=== PATIENT | male | born 1940 | race Caucasian/White ===

== ENCOUNTER → 2016-10-02 | Outpatient (CLI) | payer OTHER, BC ==
[~2016-10-02] MED LIST: ACCUPRIL; ACCUPRIL PO; ADULT LOW DOSE81 MG PO; AMBEREN PO; AMBIEN 5 MG TABL5 M1 PO; AMBIEN CR 6.26.25 M1 PO; AMBIEN CR12.5 MG PO; AMBIENCR; AMBIENCR PO; AMOXICILLIN125 MG; ASPIR 8181 MG PO; ASPIRIN EC325 MG PO; ASPIRIN EC81 M1 PO; ATIVAN0.5 MG PO; ATIVAN1 MG PO; ATORVASTATIN CA20 MG PO; ATORVASTATIN CA40 MG PO; CALCIUM 500 +1 EAC5 PO; CALCIUM 600 +1 EAC2 PO; CALCIUM 600 +1 EAC5 PO; CALCIUM PO; CEFTIN 250250 MG/52 PO; CENTRUM SILVER1 EAC4 PO; CEPACOL SORE T1 EAC1 MM; DOXYCYCLINE 10100 MG PO; ECOTRIN325 MG PO; EFFIENT10 MG PO; FENOFIBRATE134 MG PO; FISH OIL + VIT1 EACH PO; FOLIC ACID 40400 MC1 PO; FOLIC ACID 40400 MCG PO; FOLIC ACID PO; FOLIC ACID1 MG PO; GLIPIZIDE ER2.5 MG PO; GLUCOTROL XL5 MG PO; GLUCOTROL5 MG PO; IBUPROFEN 600600 M1 PO; JANUVIA100 MG PO; JUNIVA; METFORMIN; METHOTREXATE 22.5 MG PO; MULTI-VITAMIN1 EAC5 PO; MULTIVITAMINS; NEXIUM 40 MG CA40 M1 PO; NEXIUM40 MG PO; NORCO 5-325 TA1 EACH PO; PEPCID40 MG PO; PIOGLITAZONE15 MG; PREDNISONE; PREDNISONE 1 MG1 M1 PO; PREDNISONE 5 MG5 M1 PO; PREDNISONE PO; PREVACID 24HR15 MG PO; QUINU10 PD PO; QUINU5 PD PO; TOPROL XL25 MG PO; TREXALL10 MG PO; TREXALL5 MG PO; TRICOR; TRICOR PO; TRICOR145 MG PO; UNICOMPLEX M TA1 TA1 PO; VITAMIN C + RO500 MG PO; VITAMIN D1000 UNI1 PO; VITAMINC500 PO; VYTORIN; VYTORIN 10-401 EACH PO; VYTORIN PO; ZOFRAN ODT4 MG PO
== END ==
LOC: RAD 10:32
DX: J90 Pleural effusion, not elsewhere classified (principal); J98.11 Atelectasis

== ENCOUNTER 2017-02-20 09:33 | Emergency (ER) | payer OTHER, BC ==
[~2017-02-20] VITALS: Ht 170.2 cm; Wt 68.0 kg
[2017-02-20] MEDS ORDERED: SENNA8.6 MG PO (11:18)
[2017-02-20] MEDS ORDERED: NORCO 5-325 TA1 EACH PO (11:25)
[2017-02-20 11:33] VITALS: BP 124/73
== END 2017-02-20 11:35 | disposition home or self-care (01) ==
LOC: ER 09:33
DX: M84.48XA Pathological fracture, other site, initial encounter for fracture (principal); E11.9 Type 2 diabetes mellitus without complications; M19.90 Unspecified osteoarthritis, unspecified site; Z95.9 Presence of cardiac and vascular implant and graft, unspecified; Z88.1 Allergy status to other antibiotic agents; Z88.2 Allergy status to sulfonamides; Z88.8 Allergy status to other drugs, medicaments and biological substances

== ENCOUNTER → 2017-03-07 | Outpatient (CLI) | payer OTHER, BC ==
[~2017-03-07] MED LIST changes: +SENNA8.6 MG PO
== END ==
LOC: MRI 11:47
DX: S22.000A Wedge compression fracture of unspecified thoracic vertebra, initial encounter for closed fracture (principal); X58.XXXA Exposure to other specified factors, initial encounter; Y93.89 Activity, other specified; Y92.89 Other specified places as the place of occurrence of the external cause; Y99.8 Other external cause status

== ENCOUNTER → 2017-04-22 | Outpatient (CLI) | payer OTHER, BC | LOC: CAT 09:53 | DX: J92.0 Pleural plaque with presence of asbestos (principal); J98.11 Atelectasis; Z77.090 Contact with and (suspected) exposure to asbestos ==

== ENCOUNTER → 2017-11-11 | Outpatient (CLI) | payer OTHER, BC | LOC: RAD 12:19 | DX: J44.9 Chronic obstructive pulmonary disease, unspecified (principal) ==

== ENCOUNTER → 2018-01-30 | Outpatient (CLI) | payer OTHER, BC ==
[~2018-01-30] VITALS: Ht 170.2 cm; Wt 69.0 kg
[~2018-01-30] MED LIST changes: +CENTRUM SILVER1 EAC2 PO; +ERGOCALCIF50000 UNIT PO; +GLIPIZIDE ER5 MG PO; +LOSARTAN POTAS100 MG PO; +NITROGLYCERIN0.4 MG SUBLING; +ZOLPIDEM TART12.5 M1 PO
--- NOTE | ~2018-01-30 | PATH ---
[facility] [address] [place] [address] PATHOLOGY RPT PROCEDURE Name: KIERRA CORONEL Barbara Room #: REG [facility].#: [id number] Admission: 01/30/18 Date of : 44 Discharge: Report #: [id number] Path Case #: [id number] [facility] Accession Number: [id number] . 01 Material submitted: . PART A: SMALL BOWEL BX PART B: GASTRITIS PART C: PROXIMAL ASCENDING COLON POLYP BX X2 PART D: HEPATIC FLEXURE POLYP PART E: COLON POLYP BX 70 CM X2 . 01 Clinical history: . Pre-op diagnosis: Dysphagia, iron deficiency anemia, history of colon polyps, family history of colon cancer Post-op diagnosis: Dysphagia, gastritis, esophageal varices, colon polyps, diverticulosis . 02 Diagnosis: A. Small bowel mucosa, small bowel rule out celiac, endoscopic biopsy: - No diagnostic abnormalities. - Negative for villous blunting or increase in intraepithelial lymphocytes. . B. Gastric mucosa, gastric, rule out H. pylori, endoscopic biopsy: - Mild reactive gastropathy. - Negative for intestinal metaplasia or atrophy. - Negative for Helicobacter pylori (properly-controlled immunohistochemical stain performed). . C. Polyp x2, proximal ascending colon, endoscopic biopsy: - One fragments showing a tubular adenoma without high grade dysplasia. - Remainder fragments showing hyperplastic polyps without dysplasia. . D. Polyp, hepatic flexure polyp, endoscopic biopsy: - Tubular adenoma. - Negative for high grade dysplasia. . E. Polyp x2, colon polyp at 70 cm, endoscopic biopsy: - Tubular adenoma admixed with hyperplastic changes. - Negative for high grade dysplasia. . (IUV:mml; 02/03/18) [facility]/02/03/2018 . 02 Electronically signed: . Audra Woody MD, Pathologist NPI- [id number] [address] [address] PATHOLOGY RPT PROCEDURE Name: KIERRA CORONEL Room #: REG CLI Scot#: [id number] Admission: 01/30/18 Date of : 44 Discharge: Report #: [id number] Path Case #: [id number] . 01 Gross description: . A. The specimen is received in formalin, labeled "Kierra Coronel small bowel biopsy, R/O celiac". Received are five segments of pale cartagena soft tissue ranging in size from 0.2 to 0.5 cm in maximum dimensions. The specimen is submitted entirely in cassette A1. . B. The specimen is received in formalin, labeled "Kierra Souesperanza, gastritis, R/O H. pylori". Received are three segments of pale cartagena soft tissue ranging in size from 0.2 to 0.6 cm in maximum dimensions. The specimen is submitted entirely in cassette B1. . C. The specimen is received in formalin, labeled "Kierra Sousley, proximal ascending colon polyp biopsy x2". Received are three segments of pale cartagena soft tissue ranging in size from 0.2 to 0.7 cm in maximum dimensions. The specimen is submitted entirely in cassette C1. . D. The specimen is received in formalin, labeled "Kierra Sousley, hepatic flexure polyp". Received is a segment of pale cartagena soft tissue measuring 0.6 cm in maximum dimensions. The specimen is submitted entirely in cassette D1. . E. The specimen is received in formalin, labeled "Kierra Souesperanza, colon polyp 70 cm biopsy x2". Received are two segments of pale cartagena soft tissue measuring 0.2 and 0.4 cm in maximum dimensions. The specimen is submitted entirely in cassette E1. (CAA; 01/31/2018) QAC/QAC . 02 Pathologist provided ICD-10: K31.9, D12.2, D12.3, D12.6, K63.5 . 02 CPT . 806044, 233566, 238519, 267828, 755119, G11390 Performed at: [address], [place], [place] [id number] MD Pedro Cerrato MD Phone: [phone] Performed at: [address] [id number] MD Audra Woody MD Phone: [phone]
--- NOTE | ~2018-01-30 | P ---
[facility] [place] [address] PROCEDURE REPORT Name: KIERRA CORONEL Room #: REG [facility]#: [id number] Admission: 01/30/18 Attend Phys: Nick Romero MD Discharge: Date of : 42 Report #: [id number] THIS REPORT FOR: //name// CC: Nick Tavera MD DATE OF SERVICE: 01/30/2018 BRIEF HISTORY: The patient is a 77-year-old male with recent findings of iron deficiency anemia. His father had colon cancer when he was in his late 60s. The patient has a history of colon polyps. PREOPERATIVE DIAGNOSIS: Iron deficiency anemia and family history of colon cancer and history of colon polyps. POSTOPERATIVE DIAGNOSES: 1. Multiple colon polyps. 2. Moderate sigmoid diverticulosis coli. MEDICATIONS: Deep sedation with propofol per anesthesia. SPECIMENS: 1. Proximal ascending colon polyps x 2. 2. A 6 mm sessile hepatic flexure polyp. 3. Polyps x 2 at 70 cm. ESTIMATED BLOOD LOSS: 3 mL. PROCEDURE: Colonoscopy to cecum and terminal ileum with snare polypectomy and biopsy. FINDINGS: Prior to propofol sedation, procedure of colonoscopy discussed with the patient as well as potential risks and its complications. He indicates he understands and desires to proceed. The patient was placed in left lateral decubitus position, digital examination was completed which revealed no abnormalities. Subsequently, the DB3 Mobile video colonoscope was introduced in the rectum, advanced under direct vision to the cecum. Done with minimal difficulty. The cecum was identified by the ileocecal valve and the appendiceal orifice. I was able to visualize the distal segment of the terminal ileum, which was inspected and noted to be unremarkable. At that point, the scope was slowly withdrawn and careful circumferential views obtained including retroflexing the scope in the ascending colon. Upon slow withdrawal of the scope, the prep was good. The mucosa was within normal limits, normal vascular pattern, normal light reflex. As we withdrew the scope, [facility] [address] [place] [address] PROCEDURE REPORT Name: KIERRA CORONEL Room #: REG [facility] KaroAmanda#: [id number] Admission: 01/30/18 Attend Phys: Nick Romero MD Discharge: Date of : 42 Report #: [id number] 2 diminutive polyps were seen, removed by biopsy in the proximal ascending colon. Scope was further withdrawn and at the hepatic flexure, a 6 mm sessile polyp was seen and removed by cold snare polypectomy and recovered. Scope was further withdrawn and no additional abnormalities were noted until the descending colon at 70 cm, 2 more diminutive polyps were seen and removed by biopsy. Scope was further withdrawn and he was noted to have moderately severe diverticular disease in the sigmoid colon, endoscopic evidence of diverticulitis. Scope was withdrawn in the rectum. Upon retroflexion, no abnormalities were seen. Scope was withdrawn. The patient tolerated the procedure well. CONDITION OF THE PATIENT UPON DISCHARGE: Following the procedure, the patient was drowsy and arousable, will be discharged home when fully ambulatory. INSTRUCTIONS TO THE PATIENT AND FAMILY AT THE TIME OF DISCHARGE: The patient with 5 polyps as noted above. We will follow up on the path. If 3 or more polyps are adenomas, he is to return in 3 years, otherwise he is to return in 5 years for followup colonoscopy due to the polyps and family history. Withdrawal time from the cecum was 18 minutes 59 seconds. Last previous colonoscopy was about 4 years ago. <ELECTRONICALLY SIGNED> By: Nick Romero MD 01/31/18 1645 1132 1203 Nick Romero MD /nt
--- NOTE | ~2018-01-30 | P ---
[facility] [place] [address] PROCEDURE REPORT Name: KIERRA CORONEL Room #: REG [facility]#: [id number] Admission: 01/30/18 Attend Phys: Nick Romero MD Discharge: Date of : 42 Report #: [id number] THIS REPORT FOR: //name// CC: Nick Tavera MD BRIEF HISTORY: The patient is a 77-year-old male with recent findings of iron deficiency anemia. He also has intermittent solid food dysphagia in particular for rice boluses. PREOPERATIVE DIAGNOSIS: Dysphagia. POSTOPERATIVE DIAGNOSES: 1. Grade 1 esophageal varices, nonbleeding. 2. Diffuse gastritis. MEDICATIONS: Deep sedation with propofol per anesthesia. SPECIMENS: 1. Small-bowel biopsies to rule out celiac disease. 2. Biopsies of gastritis. ESTIMATED BLOOD LOSS: 3 mL. PROCEDURE: EGD with biopsy and Caruso dilation. FINDINGS: Prior to propofol sedation, the procedure of upper endoscopy was discussed with the patient as well as potential risks, benefits and complications. He indicates he understands and desires to proceed. With the patient in left lateral decubitus position, the Olympus video endoscope was inserted in the cervical esophagus under direct vision without difficulty. Examination of this organ through its entire tie length revealed normal esophageal mucosa in the proximal esophagus. However, in the mid and distal esophagus, 3 columns of grade I esophageal varices were identified. There were no stigmata of bleeding. The varices extended to just above the squamocolumnar junction. The patient has had dysphagia, no strictures or masses were seen. The scope was advanced in the stomach, was examined on end view as well as retroflexed views. There was diffuse erythematous antral gastritis. There were no ulcers or erosions and no evidence of bleeding. Multiple biopsies were obtained of the antrum and also the body of the stomach. Examination of the remainder of the stomach revealed normal mucosa. Upon retroflexion, gastric varices were not seen. Pylorus, duodenal bulb, and postbulbar sweep were all inspected and noted to be within normal limits. Due to his history of anemia, small-bowel biopsies were obtained. At that point, the scope was slowly withdrawn and careful circumferential views confirmed the above findings. The [address] [address] PROCEDURE REPORT Name: KIERRA CORONEL Barbara Room #: REG [facility].#: [id number] Admission: 01/30/18 Attend Phys: Nick Romero MD Discharge: Date of : 44 Report #: [id number] patient tolerated the procedure well. Subsequently, he was dilated with passage of 50-Georgian Caruso dilator. He does have grade 1 varices, but the varices are small and varices were not seen right at the GE junction. After dilation, the scope was reinserted and no mucosal trauma was encountered and there was no evidence of bleeding. Scope was withdrawn. The patient tolerated the procedure well. CONDITION OF THE PATIENT UPON DISCHARGE: Following procedure, the patient drowsy, arousable and conversant. He was then prepared for colonoscopy due to his anemia. INSTRUCTIONS TO THE PATIENT AND FAMILY AT THE TIME OF DISCHARGE: The patient with findings of esophageal varices. To the best of my knowledge, this is a new finding. We will discuss further with the patient. He reports that he does not drink alcohol, we will review with him once again. He may need to follow up in the office for further evaluation of his varices. We will proceed with colonoscopy at this time. <ELECTRONICALLY SIGNED> By: Nick Romero MD 01/31/18 1645 1056 1201 Nick Romero MD /nt
== END | disposition home or self-care (01) ==
LOC: GI 12-05 08:41
DX: D12.2 Benign neoplasm of ascending colon (principal); D12.4 Benign neoplasm of descending colon; D12.3 Benign neoplasm of transverse colon; K63.5 Polyp of colon; K57.30 Diverticulosis of large intestine without perforation or abscess without bleeding; K31.9 Disease of stomach and duodenum, unspecified; K29.70 Gastritis, unspecified, without bleeding; R13.19 Other dysphagia; I85.00 Esophageal varices without bleeding; I10 Essential (primary) hypertension; E11.9 Type 2 diabetes mellitus without complications; I25.2 Old myocardial infarction; M19.90 Unspecified osteoarthritis, unspecified site; K21.9 Gastro-esophageal reflux disease without esophagitis; F41.9 Anxiety disorder, unspecified; Z95.5 Presence of coronary angioplasty implant and graft; Z85.828 Personal history of other malignant neoplasm of skin; Z79.899 Other long term (current) drug therapy; Z95.1 Presence of aortocoronary bypass graft; Z80.0 Family history of malignant neoplasm of digestive organs; Z90.49 Acquired absence of other specified parts of digestive tract; Z87.891 Personal history of nicotine dependence; Z86.010 Personal history of colon polyps
CPT/HCPCS: 62110; 62900

== ENCOUNTER → 2018-03-11 | Outpatient (CLI) | payer OTHER, BC | LOC: ULTRA 07:55 | DX: K76.0 Fatty (change of) liver, not elsewhere classified (principal); I77.811 Abdominal aortic ectasia; R16.1 Splenomegaly, not elsewhere classified; E11.9 Type 2 diabetes mellitus without complications; M19.90 Unspecified osteoarthritis, unspecified site ==

== ENCOUNTER 2018-08-13 05:31 | Day surgery (SDC) | payer OTHER, BC ==
[~2018-08-13] VITALS: Ht 170.2 cm; Wt 64.0 kg
--- NOTE | ~2018-08-13 | O ---
[facility] [place] [address] OPERATIVE REPORT Name: KIERRA CORONEL Room #: 150-5 [facility]..#: [id number] Admission: 08/13/18 Attend Phys: Valentino Zaldivar MD Discharge: Date of : 44 Report #: [id number] THIS REPORT FOR: //name// CC: DR KYUNG Zaldivar PREOPERATIVE DIAGNOSIS: Left inguinal hernia. POSTOPERATIVE DIAGNOSIS: Left indirect inguinal hernia. PROCEDURES PERFORMED: Laparoscopic properitoneal repair of a left indirect inguinal hernia with a large 3DMax lightweight mesh. SURGEON: Valentino Zaldivar M.D. ANESTHESIA: General anesthesia. COMPLICATIONS: None. ESTIMATED BLOOD LOSS: 10 mL. PROCEDURE NOTE: With the patient under general anesthesia, Garg catheter was placed, IV vancomycin 1 gram was given. Timeout was performed. Abdomen was prepped and draped in sterile fashion. A small 2 cm incision was made adjacent to the umbilicus on the left side. Anterior rectus fascia was transversely incised. The muscle was spread along the length of its fiber. The posterior sheath was identified. The space between the muscle and the posterior sheath was bluntly dissected. An 11 mm Origin balloon trocar was then placed in the space. CO2 was placed. The pressure was set at 12. Under visualization, a 5 mm trocar was placed about couple of inches below the umbilicus. Dissection was carried out bluntly and with cautery. Properitoneal space was opened up. The patient did have a couple of areas that were oozing, one in the lateral wall on the left and the L1 was underneath the pubic bone. A second 5 mm trocar was placed about 2 inches below the initial 5 mm trocar. The dissection was carried to the area of the spermatic cord, which is guided by the inferior epigastric artery. The patient had a prominent indirect sac. When the sac was tied on, the cord was initially inseparable from the sac. An opening was made in the hernia sac. This was closed with placing three 5 mm clips on it. The hernia sac was then reduced out of the internal ring out of the canal. This was then freed from the underlying cord structure. The mass was found and the vessels were found. The hernia sac was reduced without difficulty. There is some oozing from the vessel described above. The blood was evacuated as much as possible. A large 3DMax lightweight mesh was then placed in the properitoneal space. This was opened up. This covered the lateral wall and the internal ring. This covered the pubic bone and went down below the pubic bone and then up to the rectus muscle. The mesh was then tacked to the wall using SorbaFix. [address] [address] OPERATIVE REPORT Name: KIERRA CORONEL Room #: 150-5 [facility] M.R.#: [id number] Admission: 08/13/18 Attend Phys: Valentino Zaldivar MD Discharge: Date of : 42 Report #: [id number] The hernia sac was found and then brought medial to the mesh. The CO2 was evacuated. The patient did have quite a bit of air intraabdominally. The two 5 mm trocars were then removed. At the small incision site, the posterior sheath was opened at the umbilicus side. The posterior sheath was opened and then the peritoneum was also opened. CO2 was evacuated. I did place a 5 mm trocar into the abdominal cavity through this opening and then evacuated the CO2 as much as possible. Trocars then removed. The posterior fascia defect was closed with [id number] 0 Vicryl. Anterior fascia defect at the small cutdown site was closed with 0 Vicryl [id number] x 2. Skin was irrigated. Skin was closed with 5-0 PDS at all trocar sites. Steri-Strip, Band-Aids applied. The patient was awakened and taken to recovery room. By: 1159 1248 Valentino Zaldivar MD /nt
[~2018-08-13 05:31] MED LIST changes: +TYLENOL EXTRA500 MG PO; +XARELTO20 MG PO
[2018-08-13 08:42] LABS: HEMATOCRIT 38.5 % (42.0-52.0); HEMOGLOBIN 12.3 gm/dL (14.0-18.0)
[2018-08-13 08:44] VITALS: BP 128/57
[2018-08-13 08:54] LABS: APTT 27.5 Seconds (24.5-32.8); INR 1.1; PROTIME 11.6 Seconds (9.3-11.4)
[2018-08-13] MEDS ORDERED: NORCO 5-325 TA1 EACH PO (11:39)
[2018-08-13 11:57] VITALS: BP 128/57
== END 2018-08-13 12:40 | disposition home or self-care (01) ==
LOC: OR 05:31 → TBA 05:31 → OR 12:40
PROVIDERS: Surgery
DX: K40.90 Unilateral inguinal hernia, without obstruction or gangrene, not specified as recurrent (principal); I20.0 Unstable angina; K21.9 Gastro-esophageal reflux disease without esophagitis; F41.9 Anxiety disorder, unspecified; E11.9 Type 2 diabetes mellitus without complications; M19.90 Unspecified osteoarthritis, unspecified site; I25.2 Old myocardial infarction; E78.5 Hyperlipidemia, unspecified; I48.91 Unspecified atrial fibrillation; Z87.891 Personal history of nicotine dependence; Z90.49 Acquired absence of other specified parts of digestive tract; Z88.1 Allergy status to other antibiotic agents; Z88.2 Allergy status to sulfonamides; Z88.8 Allergy status to other drugs, medicaments and biological substances; Z79.82 Long term (current) use of aspirin; Z79.899 Other long term (current) drug therapy; Z95.5 Presence of coronary angioplasty implant and graft; Z85.828 Personal history of other malignant neoplasm of skin; Z98.890 Other specified postprocedural states
CPT/HCPCS: 50010; 50101; 50411; 50455; 50507; 50555; 50848; 53065; 53307; 55245; 56525; 56526; 62110; 62900; 70005

== ENCOUNTER 2018-09-08 09:46 | Emergency (ER) | payer OTHER, BC ==
[~2018-09-08] VITALS: Ht 170.2 cm; Wt 63.5 kg
[2018-09-08 10:34] LABS: ABSOLUTE NEUTROPHILS 8.7 thou/uL (1.4-8.2); BASOPHILS 1.4 % (0.0-2.0); EOSINOPHILS 2.2 % (0.0-3.0); HEMATOCRIT 39.9 % (42.0-52.0); HEMOGLOBIN 12.6 gm/dL (14.0-18.0); LYMPHOCYTES 4.1 % (24.0-44.0); MCHC 31.7 g/dL (28.0-37.0); MCV 72.5 fL (80.0-100.0); MONOCYTES 4.4 % (1.0-8.0); PLATELET COUNT 154 thou/uL (150-400); POLYS 87.9 % (36.0-66.0); RDW 20.9 % (10.5-14.5); WBC 9.9 thou/uL (4.0-11.0)
[2018-09-08 10:42] LABS: CALCIUM 8.7 mg/dL (8.5-10.1); CREATININE 0.9 mg/dL (0.7-1.3)
[2018-09-08] MEDS ORDERED: LASIX 20 MG TAB20 MG PO (12:46)
[2018-09-08] MEDS ORDERED: POTASSIUM20 PO (12:46)
[2018-09-08] MEDS ORDERED: DOXYCYCLINE 10100 MG PO (13:50)
[2018-09-08] MEDS ORDERED: ELIQUIS5 MG PO (13:51)
[2018-09-08 13:53] VITALS: BP 112/58
== END 2018-09-08 13:53 | disposition home or self-care (01) ==
LOC: ER 09:46
PROVIDERS: Student in an Organized Health Care Education/Training Program
DX: M79.89 Other specified soft tissue disorders (principal); E11.9 Type 2 diabetes mellitus without complications; M19.90 Unspecified osteoarthritis, unspecified site; K21.9 Gastro-esophageal reflux disease without esophagitis; I10 Essential (primary) hypertension; Z85.828 Personal history of other malignant neoplasm of skin; E78.5 Hyperlipidemia, unspecified; F41.9 Anxiety disorder, unspecified; I48.91 Unspecified atrial fibrillation; Z77.22 Contact with and (suspected) exposure to environmental tobacco smoke (acute) (chronic); Z88.1 Allergy status to other antibiotic agents; Z88.8 Allergy status to other drugs, medicaments and biological substances; Z88.2 Allergy status to sulfonamides; Z90.49 Acquired absence of other specified parts of digestive tract; Z95.5 Presence of coronary angioplasty implant and graft

== ENCOUNTER 2018-09-19 12:33 | Inpatient (IN) | payer OTHER, BC ==
[2018-09-19] VITALS (7 sets, daily range): BP systolic 100–157; BP diastolic 57–74
[~2018-09-19] VITALS: Ht 170.2 cm; Wt 75.2 kg
[~2018-09-19 12:33] MED LIST changes: +ELIQUIS5 MG PO; +LASIX 20 MG TAB20 MG PO; +POTASSIUM20 PO
[2018-09-19 13:03] LABS: ABSOLUTE NEUTROPHILS 11.8 thou/uL (1.4-8.2); BASOPHILS 0.9 % (0.0-2.0); EOSINOPHILS 0.8 % (0.0-3.0); HEMATOCRIT 37.9 % (42.0-52.0); LYMPHOCYTES 2.7 % (24.0-44.0); MCH 22.4 pg (26.0-34.0); MCHC 31.7 g/dL (28.0-37.0); MCV 70.7 fL (80.0-100.0); MONOCYTES 5.1 % (1.0-8.0); PLATELET COUNT 261 thou/uL (150-400); POLYS 90.5 % (36.0-66.0); RBC 5.37 mil/uL (4.50-6.00); RDW 19.9 % (10.5-14.5); WBC 13.1 thou/uL (4.0-11.0)
[2018-09-19 13:10] LABS: CALCIUM 8.4 mg/dL (8.5-10.1); CREATININE 0.9 mg/dL (0.7-1.3)
[2018-09-19 13:26] LABS: URINE BILIRUBIN NEGATIVE (Negative); URINE BLOOD NEGATIVE (Negative); URINE CLARITY CLEAR; URINE COLOR YELLOW; URINE GLUCOSE-RANDOM* NEGATIVE (Negative); URINE KETONES NEGATIVE (Negative); URINE LEUKOCYTES-REFLEX NEGATIVE (Negative); URINE NITRITE-REFLEX NEGATIVE (Negative); URINE PROTEIN (DIPSTICK) TRACE (Negative); URINE SPECIFIC GRAVITY 1.025 (1.005-1.035); URINE UROBILINOGEN 0.2 E.U./dl (0.2-1.0)
[2018-09-19] MEDS ORDERED: POTASSIUM20 PO (13:42)
[2018-09-19] MEDS ORDERED: LASIX 40 MG TAB40 M2 PO (13:43)
[2018-09-19 13:48] LABS: ANISOCYTOSIS 2+; HYPOCHROMASIA 1+; MICROCYTES 1+; OVALOCYTES OCCASIONAL
--- NOTE | 2018-09-19 16:53 | NUR ---
VASCULAR ACCESS CONSULTED FOR PICC LINE, LABS,MEDS,HISTORY,ORDER AND CONSENT VERIFIED. DISCUSSED BENEFITS AND RISKS WITH PT, VERBALIZED UNDERSTANDING. SUE GAINES WAS WIDELY PATENT WITH USG, 1% LIDOCAINE GIVEN SQ. 5FR TL POWER PICC TRIMMED TO 45CM INSERTED TO 3CM EXTERNAL. PICC SECURED STAT CXR OBTAINED VERIFIED AT [facility]. PICC RELEASED FOR IMMEDIATE USE PER PROTOCOL TO THIEN ROGER
--- NOTE | 2018-09-19 21:30 | NUR ---
77 Y/O PT OF DR SHEETS ADMITTED TO ICU FROM ER WITH SEPSIS HYPOTENSION PT IS AWAKE AND ALERT. MONITOR SHOWS AFIB RATE 80 TEMP 98.8 TITRATING DOWN LEVOPHED GTT FROM 12 MCG. WILL CONT TO MONITOR
--- NOTE | 2018-09-19 21:30 | NUR ---
77 Y/O PT ADMITTED TO ICU . AWAKE AND ALERT NEURO INTACT. SINUS RHYTHM TITRATING DOWN LEVOPHED GTT. SON AT BEDSIDE. WILL CONT TO MONITOR
--- NOTE | 2018-09-19 23:00 | NUR ---
LEVO GTT TITRATED OFF. SBP 130/70.
[2018-09-20] VITALS (24 sets, daily range): BP systolic 98–138; BP diastolic 50–72
[2018-09-20 05:49] LABS: HEMATOCRIT 28.8 % (42.0-52.0); MCH 22.9 pg (26.0-34.0); MCHC 32.4 g/dL (28.0-37.0); MCV 70.5 fL (80.0-100.0); RBC 4.08 mil/uL (4.50-6.00); RDW 19.8 % (10.5-14.5); WBC 8.4 thou/uL (4.0-11.0)
[2018-09-20 05:50] LABS: HEMOGLOBIN 9.3 gm/dL (14.0-18.0)
[2018-09-20 05:56] LABS: CALCIUM 7.6 mg/dL (8.5-10.1); CREATININE 0.7 mg/dL (0.7-1.3); POTASSIUM 3.8 mmol/L (3.5-5.1)
--- NOTE | 2018-09-20 06:00 | NUR ---
PT AWAKE AND ALERT. IN GOOD SPIRITS. LUNGS ESS CLEAR. MONITOR SHOWS A FIB AFEBRILE. VOIDED 1000 CC CLEAR MARY URINE. PAIN MED FOR RIGHT FOOT DISCOMFORT. A VERY DELIGHTFUL GENTLEMAN. WILL CONT TO MONITIOR CLOSELY.
--- NOTE | 2018-09-20 06:00 | NUR ---
PT AWAKE AND ALERT IN GOOD SPIRITS, VOIDED 1000 CC CLEAR MARY URINE, REMAINS IN SINUS RHYTHM WITH OCC PVC. PAIN MED FOR RIGHT FOOT DISCOMFORT THAT HAS SUBSIDED. AFEBRILE. COPLETE BATH GIVEN. A VERY DELIGHTFUL GENTLEMAN WILL CONT TO MONITOR, OO
--- NOTE | 2018-09-20 12:45 | NUR ---
PT NAUSEATED, ZOFRAN IV GIVEN WITH RELIEF. PT SAT UP IN CHAIR FOR 2 HOURS, WELL TOLERATED. BACK TO BED & HELD LUNCH PER HIS PREFERENCE. FRIEND VISITING.
--- NOTE | 2018-09-20 19:19 | NUR ---
NAUSEA IMPROVED DURING SHIFT. ZOFRAN GIVEN PRIOR TO HYDROCODONE AND PRIOR TO DINNER TO PREVENT NAUSEA. PM MEAL WELL TOLERATED. R INNER ANKLE PAIN IMPROVED, PAIN DOWN TO 3/10. AFIB CONTROLLED, NS BOLUS 1,000CC INFUSED, 2-3L/NC, LUNGS CLEAR/DIMINISHED, ENCOURAGED TO TAKE DEEP BREATHS/COUGH, VOIDING SMALL AMOUNTS URINE 50-100CC AT A TIME. XRAY R ANKLE COMPLETED. PT SLOWLY PROGRESSING.
[2018-09-21] VITALS (44 sets, daily range): BP systolic 79–162; BP diastolic 49–83
--- NOTE | 2018-09-21 04:09 | NUR ---
SHIFT NOTE PT ALERT AND ORIENTED. VS AND ASSESSMENS CHARTED. PT HAD PAIN MEDS GIVEN ORDERED. PT HAD SOME SLIGHT NAUSEA WHICH MEDICATIONS WERE GIVEN AND IT HAS RESOLVED. PT HAD SOME SOA WITH TURNING BUT MOSTLY D/T PT HOLDING BREATH D/T PAIN IN R ANKLE. PT COACHED TO DEEP BREATH AND COUGH THOUGH OUT SHIFT. PT CLEANED AND LINENS CHANED. PT TURNED Q2H AND PRN. PT USED URINAL THOUGH OUT SHIFT AND HAD ADIQUATE OUTPUT. WILL CONITINUE TO MONITOR TILL THE END OF THE SHIFT.
--- NOTE | 2018-09-21 05:13 | NUR ---
EVENT NOTE AT 0430 PT HR JUMPED INTO 150-160. PT COACHED BY RN TO BARE DOWN AND THIS ATEMPT WAS UNSUCCESSFUL. PT BLOOD PRESSURE WAS LOW AT THIS TIME. EKG OBTAINED STATING PATIENT WAS IN SVT. TANK CALIBRATOR WAS NOTIFIED AND MEDICATIONS WERE ORDERED. PT HOOKED TO CODE CART AND MEDICATION WAS GIVEN. PT SUCCESSFUL CONVERTED BACK INTO A FIB. PRESSURES STILL LOW. TANK CALIBRATOR CALLED 500CC FLUID BOLUS ORDERED. WILL CONTINUE TO MONITOR CLOSELY.
[2018-09-21 05:25] LABS: HEMATOCRIT 30.8 % (42.0-52.0); HEMOGLOBIN 9.9 gm/dL (14.0-18.0); MCH 22.7 pg (26.0-34.0); MCHC 32.2 g/dL (28.0-37.0); MCV 70.6 fL (80.0-100.0); RBC 4.37 mil/uL (4.50-6.00); RDW 19.8 % (10.5-14.5); WBC 10.8 thou/uL (4.0-11.0)
[2018-09-21 07:10] LABS: CALCIUM 7.8 mg/dL (8.5-10.1); CREATININE 0.7 mg/dL (0.7-1.3); POTASSIUM 3.8 mmol/L (3.5-5.1)
--- NOTE | 2018-09-21 19:22 | NUR ---
SHIFT SUMMARY: R FOOT PAIN CONTROLLED WITH HYDROCODONE. AFIB, 2-3L/NC, UNSUCCESSFUL ATTEMPTS TO TAKE DEEP BREATHS FOLLOWED BY DRY NONPRODUCTIVE COUGH, TOLERATING DIET, ABDOMEN ROUNDED. DUE TO PROSTATE ENLARGEMENT, PT ONLY ABLE TO VOID 50CC AT A TIME. BLOOD CULTURES X2 OBTAINED: PICC-1, PERIPHERAL-1. AT 1635, PT TO RADIOLOGY PER WHEELCHAIR WITH MONITOR AND [address] ABD/PELVIS WITH CONTRAST, THEN RETURNED AT 1700. CT RESULTS CALLED TO DR. HARPER- SEE ORDERS. PT NOT PROGRESSING.
--- NOTE | 2018-09-21 22:50 | NUR ---
Pt refused argueta catheter insertion. Pt stated "they had tried to put a (argueta) catheter in me before... and it was so painful that I screamed so bad... I don't want it (foey insertion)." Urine output 350 mL total since start of this shift with chronic urinary frequency.
[2018-09-22] VITALS (18 sets, daily range): BP systolic 100–177; BP diastolic 58–94
[2018-09-22 03:53] LABS: INR 1.2; PROTIME 12.8 Seconds (9.3-11.4)
[2018-09-22 03:55] LABS: ALBUMIN 1.4 g/dL (3.4-5.0); CALCIUM 7.7 mg/dL (8.5-10.1); CREATININE 0.6 mg/dL (0.7-1.3); POTASSIUM 4.4 mmol/L (3.5-5.1); TOTAL BILIRUBIN 0.2 mg/dL (<0.1-1.0); TOTAL PROTEIN 5.2 g/dL (6.4-8.2)
[2018-09-22 04:03] LABS: ABSOLUTE NEUTROPHILS 6.3 thou/uL (1.4-8.2); BASOPHILS 0.3 % (0.0-2.0); EOSINOPHILS 0.1 % (0.0-3.0); HEMATOCRIT 28.8 % (42.0-52.0); HEMOGLOBIN 9.5 gm/dL (14.0-18.0); LYMPHOCYTES 2.8 % (24.0-44.0); MCH 23.3 pg (26.0-34.0); MCHC 33.1 g/dL (28.0-37.0); MCV 70.5 fL (80.0-100.0); MONOCYTES 2.5 % (1.0-8.0); PLATELET COUNT 177 thou/uL (150-400); POLYS 94.3 % (36.0-66.0); RBC 4.09 mil/uL (4.50-6.00); RDW 19.7 % (10.5-14.5); WBC 6.6 thou/uL (4.0-11.0)
--- NOTE | 2018-09-22 06:27 | NUR ---
Pt a/o x 4. O2 2L NC. A-fib with controlled HR. Continued to refuse argueta insertion. No apparent distress noted. Pt resting comfortably in bed at this time. Fall precautions in place. Call light within reach.
--- NOTE | 2018-09-22 08:20 | EKG ---
[address] [address] ELECTROCARDIOGRAM REPORT Name: KIERRA CORONEL Room #: 239-P ADM IN M.R.#: [id number] ������������������ Admission: 09/19/18 ������������������ Attend Phys: Danny Gonzalez MD Discharge: ������������������ Date of : 44 Report #: [id number] ����������������������������������������������������������������� [id number] THIS REPORT FOR: //name// [facility] Test Date: 2018-09-21 Test Time: 04:37:05 Pat Name: KIERRA CORONEL Department: Room: 239 P Gender: M Silk Conditioner: [id number] : 1940 Requested By: Danny Gonzalez Order Number: [id number] MD: Main Benavides Measurements Intervals [place] Rate: 152 P: 0 DE: QRS: -18 QRSD: 90 T: 58 QT: 281 QTc: 447 Interpretive Statements Supraventricular tachycardia Borderline left axis deviation Anteroseptal infarct, age indeterminate Compared to ECG 09/06/2016 10:26:52 Sinus rhythm no longer present Electronically Signed On 09-22-2018 8:20:45 CDT by Main Benavides [email or web address] ��������������������������������������������� <ELECTRONICALLY SIGNED> ���������������������������������������� By: Main Benavides MD, [facility] ��������������������������������������������� 09/22/18 0820 0437 0437 Main Benavides MD, [facility] /EPI
--- NOTE | 2018-09-22 10:16 | NUR ---
Assess due to dx sepsis, also pneumonia, bilateral pleural effusions. Abdominal ascites with wt gain, and pending paracentesis. Tolerating diet-initially did not have his dentures but now available. Low nutrition risk
--- NOTE | 2018-09-22 11:14 | NUR ---
AFIB, ECHO COMPLETED- DR. TRACEY PRESENT. CONSENT SIGNED FOR ULTRASOUND GUIDED PARACENTESIS AND PT TOLERATED PROCEDURE WITH ASCITES 50CC REMOVED. DR. SHEETS PRESENT. PT UP IN CHAIR WITH ONE ASSIST PER OCCUPATIONAL THERAPY. EATING BREAKFAST. PT ABLE TO BREATHE, TAKE DEEP BREATHS AND SPEAK WITH EASE. VOIDING 300CC PER URINAL. PT PROGRESSING.
[2018-09-22 12:31] LABS: CLARITY SLIGHTLY CLOUDY; COLOR LIGHT YELLOW; SOURCE ABDOMINAL; TOTAL VOLUME 60 mL
[2018-09-22 12:43] LABS: BF NUCLEATED CELLS 422; BF RBC 383
--- NOTE | 2018-09-22 13:02 | HC ---
[facility] [place] [address] CONSULTATION Name: KIERRA CORONEL Room #: 239-P ADM IN M.R.#: [id number] Admission: 09/19/18 ������������������ Attend Phys: Danny Gonzalez MD Discharge: ������������������ Date of : 42 Report #: [id number] THIS REPORT FOR: //name// CC: Danny Tavera DATE OF SERVICE: 09/21/2018 HISTORY OF PRESENT ILLNESS: This is a very pleasant 77-year-old gentleman who had been admitted last couple of days for mental status changes, was found to have an episode of rapid heart rate the night prior to consultation. The patient has been treated for sepsis of unknown cause with elevated lactate and while being treated was found to have a rapid heart rate. This appeared to be a narrow complex rapid regular tachycardia. Upon further questioning, the patient does respond appropriately and does not feel the sensations of palpitations. He does have a distended abdomen and notices that he had some discomfort coming from the abdomen. He does not have any sensation of fever, chills or shaking. The patient denies prior history of palpitations. PAST MEDICAL HISTORY: Significant for: 1. Coronary artery disease. 2. Insulin-requiring diabetes mellitus. 3. Degenerative joint disease. 4. Hypertension. 5. Dyslipidemia. 6. Anxiety and depression syndrome. 7. Atrial fibrillation. ALLERGIES: AMOXICILLIN, LOSARTAN, SULFA AND METFORMIN. PAST SURGICAL HISTORY: Significant for: 1. Aortocoronary bypass grafting in 1993 with a subsequent coronary stents in 2010 and 2014. 2. Right foot Hanson's neuroma excision. 3. Right middle finger surgery. 4. Right inguinal hernia repair. 5. Colonoscopy. 6. Full mouth extractions and full dentures placed. 7. Skin cancer excisions. MEDICATIONS: Hydrocodone, Ativan, doxycycline, K-Dur, Lasix, Lipitor, zolpidem, glipizide, Januvia, Centrum Silver, vitamin C, folic acid, Nexium, prednisone and Toprol-XL. He is also on Eliquis, sublingual nitroglycerin, vitamin D3 and Tylenol p.r.n. SOCIAL HISTORY: The patient does not smoke or consume alcohol, follows a [facility] [address] [place] [address] CONSULTATION Name: KIERRA CORONEL Barbara Room #: 239-P [facility].#: [id number] Admission: 09/19/18 ������������������ Attend Phys: Danny Gonzalez MD Discharge: ������������������ Date of : 42 Report #: [id number] particular exercise regimen with dietary restriction. IMAGING: Electrocardiogram demonstrated atrial fibrillation with rapid ventricular response. LABORATORY DATA: Demonstrated an elevated lactate on admission and a TSH at the upper limits of normal. RADIOLOGIC: Right pleural effusion noted which appeared to be stable from before. REVIEW OF SYSTEMS: Except for symptoms previously mentioned and those commensurate with comorbid state, the 10-point review of system is negative. PHYSICAL EXAMINATION: GENERAL: Well-developed, well-nourished male, resting comfortably in no acute distress. VITAL SIGNS: Noted and reviewed in the chart. HEENT: Normocephalic, atraumatic. Pupils are equal, round, reactive to light and accommodation. Extraocular muscles are intact. Sclerae and conjunctivae are anicteric. NECK: JVD is normal. Carotid upstrokes are bilaterally symmetrical. No bruits are heard. No thyromegaly. No lymphadenopathy. LUNGS: Clear to auscultation. No wheezes, rhonchi or crackles. No CVA tenderness. CARDIAC: Demonstrates an irregularly irregular rhythm with a slightly increased ventricular response. Soft systolic murmur at the apex is noted. ABDOMEN: Distended abdomen with bowel sounds appearing decreased. Some tenderness on palpation. EXTREMITIES: Without cyanosis, clubbing or edema. Distal pulses are intact. DTR symmetrical. NEUROLOGIC: Cranial nerves 2-12 are grossly normal and symmetrical. PSYCHIATRIC: Alert, oriented with normal affect. SKIN: Warm and dry. IMPRESSION: 1. Atrial fibrillation with rapid ventricular response. The frequency and paroxysm of this is uncertain, but currently it is slightly elevated and fairly well controlled. I am not going to make any changes at the present time because these are variable and the increases are quite transient and quite brief for the moment. If it recurs, then at that point in time, we will initiate more substantial rate control. 2. Sepsis, etiology uncertain as per primary care. 3. Hypertension, not an issue at the present time with the comorbidities, but [address] [place] [address] CONSULTATION Name: KIERRA CORONEL Room #: 239-P [facility] IN M.R.#: [id number] Admission: 09/19/18 ������������������ Attend Phys: Danny Gonzalez MD Discharge: ������������������ Date of : 42 Report #: [id number] need to monitor closely. 4. Diabetes mellitus, being monitored. Continue to observe. ��������������������������������������������� <ELECTRONICALLY SIGNED> ���������������������������������������� By: Pranav London MD ��������������������������������������������� 09/22/18 1302 [id number] [id number] Pranav London MD /nt
[2018-09-22 13:25] LABS: BF MACROPHAGE 19; BF NEUTROPHILS 78
--- NOTE | 2018-09-22 13:29 | 2DMMODE ---
[facility] [place] [address] 2 D/M-MODE ECHOCARDIOGRAM Name: KIERRA CORONEL Room #: 239-P [facility] IN ..#: [id number] ������������� Admission: 09/19/18 ������������� Attend Phys: Danny Gonzalez MD Discharge: ��� ������������� ��� Date of : 42 Date of Service: 09/22/18 1329 �� Report #: [id number] �������� ��������������������������������������������[id number] THIS REPORT FOR: //name// APPROVED REPORT Study performed: 09/22/2018 08:57:30 EXAM: Comprehensive 2D, Doppler, and color-flow Echocardiogram Patient Location: Bedside Room #: 239 Status: routine BSA: 1.84 HR: 74 bpm BP: 109/60 mmHg Rhythm: Atrial Fibrillation Other Information Study Quality: Good Risk Factors: Cardiac Risk Factors: HTN, Hyperlipidemia Indications Atrial Fibrillation Sepsis CAD 2D Dimensions IVSd: 9.43 (7-11mm) LVOT Diam: 19.00 (18-24mm) LVDd: 61.38 mm PWd: 9.04 (7-11mm) Ascending Ao: 39.02 (22-36mm) LVDs: 49.93 (25-40mm) Aortic Root: 41.76 mm LV Single Plane 4CH: 50.00 % LV Single Plane 2CH: 52.00 % Biplane EF: 52.8 % Volumes Left Atrial Volume (Systole) Single Plane 4CH: 78.14 mL Single Plane 2CH: 55.21 mL LA ESV Index: 39.00 mL/m2 Aortic Valve AoV Peak Cesar.: 2.16 m/s AO Peak Gr.: 46.81 mmHg LVOT Max P.[address] [facility] [address] [address] 2 D/M-MODE ECHOCARDIOGRAM Name: KIERRA CORONEL Room #: 239-P [facility] IN [facility]#: [id number] ������������� Admission: 09/19/18 ������������� Attend Phys: Danny Gonzalez MD Discharge: ��� ������������� ��� Date of : 44 Date of Service: 09/22/18 1329 �� Report #: [id number] �������� ��������������������������������������������[id number] LVOT Max V: 1.13 m/s ED Vmax: 1.42 cm2 AI Vmax: 3.72 m/s AI [place]: 1.09 m/s2 AI PHT: 1059.78 ms Pulmonary Valve PV Peak Cesar.: 0.89 m/s PV Peak Gr.: 3.19 mmHg Tricuspid Valve TR Peak Cesar.: 2.40 m/s RAP Estimate: 10.00 mmHg TR Peak Gr.: 23.10 mmHg PA Pressure: 33.00 mmHg Left Ventricle Left ventricle is mildly dilated. There is normal left ventricular wall thickness. Left ventricular systolic function is moderate to severely decreased. Hypokinesis of septum, inferolateral, and inferior curran LVEF is 35%. This study is not technically sufficient to allow evaluation of the LV diastolic function due to atrial fibrillation. Right Ventricle The right ventricle is normal size. The right ventricular systolic function is normal. Atria Left atrium is mildly dilated. Right atrium is mildly dilated. Aortic Valve The aortic valve is mildly calcified, trileaflet Mild to moderate aortic regurgitation. There is no aortic valvular stenosis. Mitral Valve There is mitral annular calcification. Trace to mild mitral regurgitation. No evidence of mitral valve stenosis. Tricuspid Valve The tricuspid valve is normal in structure. Trace tricuspid regurgitation. Pulmonary artery pressure is 33 mmHg. Pulmonic Valve The pulmonary valve is normal in structure. Mild pulmonic regurgitation. [facility] [address] [place] [address] 2 D/M-MODE ECHOCARDIOGRAM Name: KIERRA CORONEL Barbara Room #: 239-P [facility] IN .R.#: [id number] ������������� Admission: 09/19/18 ������������� Attend Phys: Danny Gonzalez MD Discharge: ��� ������������� ��� Date of : 44 Date of Service: 09/22/18 1329 �� Report #: [id number] �������� ��������������������������������������������[id number] [employer] Aortic root is dilated at sinuses of Valsalva (5.0cm). Ascending aorta measures 4.0 cm. IVC is dilated and collapses >50% with inspiration. Pericardium There is no pericardial effusion. <Conclusion> Left ventricular systolic function is moderate to severely decreased. Hypokinesis of septum, inferolateral, and inferior curran LVEF is 35%. Left atrium is mildly dilated. The aortic valve is mildly calcified, trileaflet, no stenosis. Mild to moderate aortic regurgitation. There is mitral annular calcification. Trace to mild mitral regurgitation. Trace tricuspid regurgitation. Pulmonary artery pressure of 33 mmHg. Aortic root is dilated at sinuses of Valsalva (5.0cm). There is no pericardial effusion. ��������������������������������������������� <ELECTRONICALLY SIGNED> ���������������������������������������� By: Main Benavides MD, [facility] ��������������������������������������������� 09/22/18 1329 28 28 Main Benavides MD, FACC /INF
--- NOTE | 2018-09-22 19:13 | NUR ---
UPDATED DR. SHEETS ON URINE RESIDUAL-166, PT'S RESP STATUS IMPROVED AFTER PARACENTESIS AND PT TRANSFERRING TO TELE #214. REPORT PREVIOUSLY GIVEN TO ACACIA SIMMS. TRANSFERRED PER WHEELCHAIR.
[2018-09-23 04:24] VITALS: BP 138/78
[2018-09-23 05:46] LABS: HEMATOCRIT 30.2 % (42.0-52.0); HEMOGLOBIN 9.9 gm/dL (14.0-18.0); MCH 22.8 pg (26.0-34.0); MCHC 32.6 g/dL (28.0-37.0); MCV 69.9 fL (80.0-100.0); RBC 4.33 mil/uL (4.50-6.00); RDW 19.9 % (10.5-14.5); WBC 10.2 thou/uL (4.0-11.0)
[2018-09-23 05:58] LABS: CREATININE 0.7 mg/dL (0.7-1.3); POTASSIUM 4.5 mmol/L (3.5-5.1)
--- NOTE | 2018-09-23 06:15 | NUR ---
PATIENTS CARES WERE ASSUMED AT APPROX 2030. PATIENT WAS A TRANSFER FROM ICU. PATIENT WAS SITTING UP IN THE CHAIR EATING AND TALKING ON THE PHONE. ASKED THE PATIENT TO CALL ME WHEN HE WAS FINISHED EATING FOR ASSESSMENT. PATIENT WAS ASSESSED AND MEDS WERE PASSED. AT 0530 A VANCO TROUGH WAS DRAWEN BY THE NURSE. THE RESULTS ARE 15. HOURLY ROUNDING WAS DONE, PATIENT DID APPER TO BE SLEEPING. THE BED IS IN A LOW AND LOCKED POSITION
[2018-09-23 07:00] VITALS: BP 130/69
--- NOTE | 2018-09-23 10:37 | NUR ---
Met with patient, he reports he resides at home in independent setting. All needs on one level at home but 14 steps to enter. he reports he planning to install a railing outside for steps. has neuropathy, she uses a cane, walker and wc. Patient reports if he needs a walker he can use wives. Patient may need to be administered walker for home. patient reports prev he needed oxygen at home for approx a couple of weeks but now does not use at home. Dtr and son live down the street and supportive. [facility]. He reports he is aware hospital stay can weaken him. He lives in [place] and reports far drive for family. If he needs acute rehab he [facility]. Updated 5N óscar.
--- NOTE | 2018-09-23 14:05 | NUR ---
FAXED REFERRAL TO [facility] SPOKE WITH KATIE IN ADM. SHE RECEIVED REFERRAL AND WILL REVIEW. DCP TO FOLLOW.
--- NOTE | 2018-09-23 15:01 | HC ---
[facility] [place] [address] CONSULTATION Name: KIERRA CORONEL Room #: 214-P [facility] IN M.R.#: [id number] Admission: 09/19/18 ������������������ Attend Phys: Danny Gonzalez MD Discharge: ������������������ Date of : 42 Report #: [id number] THIS REPORT FOR: //name// CC: Danny Tavera DATE OF SERVICE: 09/21/2018 REASON FOR CONSULTATION: I was asked to evaluate concerning septic shock. HISTORY OF PRESENT ILLNESS: The patient was a 77-year-old with advanced rheumatoid arthritis, on 10 mg of prednisone a day longstanding, who has had a left inguinal hernia repair 3 months ago, has noticed intermittent fever and chills over the past 3 weeks. Over the past 5 days the symptoms have worsened. He has had rigors along with sensation of fever. He has had generalized weakness, which has progressed. He has complained of right ankle pain and swelling for the duration of these symptoms. He was seen on 09/08/2018 in the Emergency Room with right ankle pain and shortness of breath. CT scan of the chest with contrast was negative for acute infiltrate, PE, although he did have a small right effusion. He has been on doxycycline for about a month for his rheumatoid arthritis along with prednisone. He was previously on methotrexate some time ago, unclear exactly why he stopped this. He has not been on a biologic agent. Most of his symptoms are in his shoulders, hands, feet and knees. He has had no travel. No other exposures to ill persons. He lives at home with his . He has had minimal cough with no pleuritic chest pain. No hemoptysis. He becomes short of breath with activity. No PND or orthopnea. Since being admitted, he has had atrial fibrillation with rapid ventricular response, now improved. No headache or change in mental status. He is edentulous. No new oral lesions. No nausea, vomiting or abdominal pain, although he has had some distention. Stools have been black with occasional bright red blood. No dysuria or frequency. No hematuria. No back or flank pain. Denies any rash or ulcerations. No adenopathy. No hematologic issues. He does have underlying diabetes. No psychiatric issues. REVIEW OF SYSTEMS: A 10-point review negative other than what is described above. ALLERGIES: AMOXICILLIN, SULFA, LOSARTAN, METFORMIN. MEDICATIONS: As noted on his MAR including Levaquin. FAMILY HISTORY: Coronary artery disease. SOCIAL HISTORY: Past smoker, no significant alcohol intake. [facility] [address] [place] [address] CONSULTATION Name: KIERRA CORONEL Room #: 214-P [facility]#: [id number] Admission: 09/19/18 ������������������ Attend Phys: Danny Gonzalez MD Discharge: ������������������ Date of : 42 Report #: [id number] PHYSICAL EXAMINATION: VITAL SIGNS: He was afebrile and hemodynamics stable with temperature maximum today 100.3, 102.5 on admission, heart rate is 100, respiratory rate 17 on 3 liters of oxygen per nasal cannula, blood pressure 94/53. GENERAL: He was alert. He was pale. He was dyspneic on activity. HEENT: Eyes without scleral icterus. Mouth without mucositis. He had dentures. NECK: Supple, with no thyromegaly or mass. No JVD. LUNGS: Decreased breath sounds bilaterally with no consolidation or rub. HEART: Irregular, without murmur, gallop or rub. ABDOMEN: Mild distention. Did not appear tender, no hepatosplenomegaly or mass. A previous inguinal hernia incision unremarkable. No groin swelling. External genitalia without lesion or rash. No masses. RECTAL: Not performed. EXTREMITIES: With fairly advanced rheumatoid arthritis changes involving his shoulders, elbows, wrists, hands, feet. His right ankle had 1+ effusion. Very tender to palpation with limited range of motion. NEUROLOGIC: Cranial nerves intact. Strength in his upper and lower extremities was equal and normal. Sensation to touch upper and lower extremities was normal. Mood normal. LABORATORY STUDIES: Vancomycin trough was 9. Blood cultures negative to date, only one taken. Sodium 136, potassium 3.8, bicarbonate 23, creatinine 0.7. Hemoglobin 9.9, platelet count 192,000, white count 10.8, initially 13,000. Lactate 0.8. Urinalysis unremarkable. Chest x-ray revealed small right effusion with associated atelectasis. CT scan as noted above. X-ray of the ankle negative. IMPRESSION: This is a 77-year-old with septic shock, fever in the setting of rheumatoid arthritis and immunosuppression. He has diabetes, underlying coronary artery disease with atrial fibrillation. Symptoms have been intermittent over the past 3 weeks, now worsening with associated shock state. Source to consider would be intra-abdominal infection considering the patient is on daily corticosteroids, definitely can mask intraabdominal pain and discomfort. Occult bacteremia always a consideration. Right ankle septic arthritis seems less likely, although still must remain a consideration. Opportunistic infection in the setting of his immunosuppression also to be considered. RECOMMENDATION: Considering his antibiotic allergies, we will treat with vancomycin and meropenem. We will await cultures of his blood and repeat them today along with a sputum culture. Obtain liver function tests and CT scan of abdomen and pelvis. Following these studies we will decide further [address] [address] CONSULTATION Name: KIERRA CORONEL Room #: 214-P ADM IN M.R.#: [id number] Admission: 09/19/18 ������������������ Attend Phys: Danny Gonzalez MD Discharge: ������������������ Date of : 42 Report #: [id number] intervention. We would aspirate his ankle if possible and will continue with stress steroids. ��������������������������������������������� <ELECTRONICALLY SIGNED> ���������������������������������������� By: Ge Hutchinson MD ��������������������������������������������� 09/23/18 1501 1431 1217 Ge Hutchinson MD /nt
--- NOTE | 2018-09-23 16:39 | NUR ---
ASSESSMENTS CHARTED - PATIENT NPO AFTER BREAKFAST FOR CATH THIS AFTERNOON. UP AD ALLI IN ROOM. - MEDS PER SEP - STARTED ON IMDUR THIS AM - PT WITH CO'S OF PAIN BEING MORE OF AN ACHE/SORENESS IN HIS UPPER CHEST. NO CO'S OF NASUEA. AWAITING PATIENT TO RETRUN FROM CATH.
--- NOTE | 2018-09-23 16:42 | NUR ---
ASSESSMENT CHARTED - MEDS PER SEP - NO CO'S OF PAIN OR NAUSA. RANI DIET AND FLUIDS - PT TO RADIOLOGY TODAY AND HAD R ANKLE ASPITATION COMPLETED ORDERED - SOME TESTING UNABLE TO BE DONE DUE TO SAMPLE/FLUID FROM ANKLE HAD CLOTTED. PT STARTED ON TORPROL THIS AM - IV FLUIDS D/C'D ORDERED. PT UP TO THE WHEEL CHAIR - VOIDING PER URINAL. ACCUCHECKS COVERED PER SLIDING SCALE. NO CO'S AT THE PRSEENT TIME.
[2018-09-23 16:50] VITALS: BP 130/80
[2018-09-23 18:22] LABS: SOURCE SYNOVIAL
[2018-09-23 19:34] VITALS: BP 159/70
--- NOTE | 2018-09-24 03:55 | NUR ---
ASSUME PT CARE AT 1900. VSS EXCEPT HEART RATE, PT GETS CESARIO SOMETIMES IN THE HIGH 40s, BUT OCCATIONALLY COMES BACK UP TO THE 60s. PT A&0X4. PT IS STILL EDEMATOUS NO COMPLAINTS OF PAIN OR DISTRESS. PT RESTED WELL ALL NIGHT, STILL ON ABX. WILL CONTINUE TO MONITOR PER POC.
[2018-09-24 04:26] VITALS: BP 121/52
[2018-09-24 08:13] LABS: BODY FLUID CREATININE 0.6 mg/dL (())
[2018-09-24 08:32] VITALS: BP 127/71
[2018-09-24 11:57] VITALS: BP 122/43
[2018-09-24 16:00] VITALS: BP 119/68
--- NOTE | 2018-09-24 17:41 | NUR ---
AAOX3 VERY PLEASANT AND COOPERATIVE. UP IN CHAIR MOST OF SHIFT WORKED WITH PT. EDEMA IN LOWER EXTREMITES AND ACITES PRESENT. NO C/O PAIN. GOOD APPETITE. LEFT UPPER ARM TRIPLE LUMEN PICC. SKIN INTACT. LUNGS CLEAR O2 2L NC.VOIDS PER URINAL.
[2018-09-24 19:50] VITALS: BP 119/63
--- NOTE | 2018-09-25 03:58 | NUR ---
ASSUMED PT CARE AT 1900. VSS. PT A&0X4. ASSESSMENTS ARE DOCUMENTED. VERAMPIL WAS STARTED TONIGHT. PT RESTED WELL ALL NIGHT. NO EPISODES OF TACHYCARDIA ALL NIGHT. NO COMPLAINTS OF DISTRESS OR DISCOMFORT. PT IS STABLE, WILL COTNINUE TO MONITOR PER POC.
--- NOTE | 2018-09-25 04:22 | NUR ---
ASSUMED PT CARE AT 1900. VSS. PT A&0X4 ASSESSMENSTS AND MEDS GIVEN ARE CHARTED. PT STILL HAS EDEMA IN HIS LEGS, DENIES ANKLE PAIN ALL NIGHT. WAS CESARIO WITH SLEEP ALL NIGHT WELL. NO COMPLAINTS OF DISTRESS OR DISCOMFORT. PT HAS BEEN NPO SINCE MIDNIGHT, CONSENT FORM SIGNED THIS AM. WILL CONTINUE TO MONITOR PER POC.
[2018-09-25 04:28] VITALS: BP 126/66
[2018-09-25 09:12] VITALS: BP 113/68
--- NOTE | 2018-09-25 10:07 | PATH ---
[facility] [address] [place] [address] PATHOLOGY RPT PROCEDURE Name: KIERRA CORONEL Room #: 214-P ADM IN M.R.#: [id number] ������������������ Admission: 09/19/18 ������������������ Date of : 42 Discharge: Report #: [id number] Path Case #: [id number] Note [facility] Accession Number: [id number] TESTS RESULT FLAG UNITS REF RANGE LAB Clinician Provided Cytology Information No. of containers..01 Other (Miscellaneous) Source: 01 ABDOMINAL FLUID DIAGNOSIS: 02 ABDOMINAL FLUID NEGATIVE FOR MALIGNANT CELLS. THIS INTERPRETATION INCLUDES EVALUATION OF A CELL BLOCK. RARE MESOTHELIAL CELLS ALONG WITH ACUTE AND CHRONIC INFLAMMATION. Pathologist ICD10: 02 J91.8 Signed out by: José Woody MD, Pathologist NPI- [id number] Performed by: Juan Mortensen, [employer] ([facility]) Gross description: 01 40ML, PALE YELLOW, /LCS FLAG LEGEND: L-Low Normal,H-High Normal,LL-Alert Low,HH-Alert High <-Panic Low,>-Panic High,A-Abnormal,AA-Critical Abnormal Performed at: [address] [place] [address] Pedro Cerrato MD, [address] [address] Audra Woody MD, Specimen Comment: A courtesy copy of this report has been sent to Specimen Comment: [phone], . Specimen Comment: Report sent to / DR SHEETS Specimen Comment: A duplicate report has been generated due to demographic updates. Performed at: [address], [place], [place] [id number] MD Pedro Cerrato MD Phone: [phone]
[2018-09-25 11:38] VITALS: BP 137/75
[2018-09-25 12:49] LABS: CALCIUM 8.4 mg/dL (8.5-10.1); CREATININE 0.7 mg/dL (0.7-1.3); POTASSIUM 3.7 mmol/L (3.5-5.1)
[2018-09-25 12:52] LABS: % SATURATION 5 % (20-39); IRON 13 ug/dL (65-175); TIBC 272 ug/dL (250-450)
--- NOTE | 2018-09-25 13:11 | NUR ---
Update given to the acute rehab liason at [facility]. Possible dc tomorrow afternoon pending EGD in the am. Therapy to see this afternoon. The liason indicates they do have a bed available and can likely accept the pt. She will review clinical again and she has access to our system. Will follow.
[2018-09-25 16:00] VITALS: BP 120/75
--- NOTE | 2018-09-25 17:00 | NUR ---
ASSESSMENT CHARTED - MEDS PER MAR - PT WITH INCREASED DOSE OF DEMEDEX TODAY WITH MOD RESULTS. PT WITH SWELLING CONTINUING IN LEGS/ FEET/ ANKLES BILAT - PT FEEL/LEGS ELEVATED ON PILLOWS WHILE IN BED. NO CO'S OF PAIN OR NAUSEA. RANI DIET AND FLUIDS. PT TO [facility] MED THIS AM TO HAVE GASTRIC EMPTYING STUDY COMPLETED - WILL HAVE EGD IN THE AM - TO BE NPO AFTER MN FOR TESTING. BLOOD DRAWN FROM PICC LINE AND SENT TO LAB FOR TESTING. ACCUCHECKS COVERED PER SS. NO CO'S AT THE PRESENT TIME.
[2018-09-25 19:11] LABS: IgG 1352 mg/dL (700-1600)
[2018-09-25 19:45] VITALS: BP 110/57
[2018-09-25 23:09] LABS: HAV IgM AB (ANTI-HAV IgM) Negative (Negative); HEPATITIS B SURFACE AG Negative (Negative); HEPATITIS C VIRUS AB <0.1 (0.0-0.9)
[2018-09-26 04:45] VITALS: BP 130/50
--- NOTE | 2018-09-26 08:24 | NUR ---
PATIENT C/O UNKNOWN LEAKAGE. GOWN AND CHUCKS WET THROUGH ON LEFT SIDE. ENDED UP BEING ABDOMINAL LEAKAGE AT LOVENOX SITE. DRESSED WITH SPONGE AND ABD PAD. LAST NIGHTS LOVENOX SITE COVERED WITH A 2X2 WITH TRANSPARENT DRESSING. PATIENT NPO SINCE MIDNIGHT FOR MORNING EGD PROCEDURE. MEDS GIVEN CHARTED.
[2018-09-26 09:16] VITALS: BP 126/63
--- NOTE | 2018-09-26 11:18 | 2DMMODE ---
[address] [address] 2 D/M-MODE ECHOCARDIOGRAM Name: KIERRA CORONEL Room #: 214-P ADM IN M.R.#: [id number] ������������� Admission: 09/19/18 ������������� Attend Phys: Danny Gonzalez MD Discharge: ��� ������������� ��� Date of : 44 Date of Service: 09/26/18 1118 �� Report #: [id number] �������� ��������������������������������������������[id number] THIS REPORT FOR: //name// ADDENDUM APPROVED REPORT Study performed: 09/26/2018 10:27:21 EXAM: Comprehensive 2D, Doppler, and color-flow Echocardiogram Patient Location: Bedside Room #: 214 Status: routine BSA: 1.80 HR: 54 bpm BP: 126/63 mmHg Rhythm: Atrial Fibrillation Other Information Study Quality: Good Indications Dyspnea CAD Cardiomyopathy Left Ventricle Left ventricle is dilated. There is hypokinesis in the septal wall. There is hypokinesis in the inferior wall. There is hypokinesis in the lateral wall. There is normal left ventricular wall thickness. Left ventricular ejection fraction is moderately decreased. LVEF is 35-40%. Right Ventricle The right ventricle is normal size. The right ventricular systolic function is normal. Atria Left atrium is dilated. Right atrium is dilated. Aortic Valve The aortic valve moderately calcified Mitral Valve The mitral valve is normal in structure. Tricuspid Valve [address] [place] [address] 2 D/M-MODE ECHOCARDIOGRAM Name: KIERRA CORONEL Room #: 214-P ADM IN M.R.#: [id number] ������������� Admission: 09/19/18 ������������� Attend Phys: Danny Gonzalez MD Discharge: ��� ������������� ��� Date of : 44 Date of Service: 09/26/188 �� Report #: [id number] �������� ��������������������������������������������[id number] The tricuspid valve is normal in structure. Pulmonic Valve The pulmonary valve is normal in structure. Great Vessels Aortic root is dilated. The ascending aorta is dilated. Pericardium There is no pericardial effusion. <Conclusion> Limited and abbreviated study Left ventricular ejection fraction is moderate to severely decreased. LVEF is 35-40%. The aortic valve moderately calcified The mitral valve is normal in structure. The ascending aorta is dilated. There is no pericardial effusion. ��������������������������������������������� <ELECTRONICALLY SIGNED> ���������������������������������������� By: Main Benaivdes MD, FACC ��������������������������������������������� 09/26/18 1118 17 17 Main Benavides MD, FACC /INF
[2018-09-26 13:10] LABS: CERULOPLASMIN 29.8 mg/dL (16.0-31.0)
--- NOTE | 2018-09-26 15:17 | NUR ---
ASSUMED CARE OF PT AT APPROX 0700. PT IS ALERT AND ORIENTED X4, MONITORED ON TELE AND ABLE TO MAINTAIN 02 SAT >90 ON RA. EVEN NON LABORED BREATHING. DENIES PAIN AND SOA. PT DOWN FOR EGDN THIS AM. PT RETURNED TO UNIT WITH NO TEST PERFORMED PENDING CLEARANCE FROM CARDIOLOGY PER ANESTHESIA. PT WAS THEN TAKEN BACK DOWN TO GI TO HAVE PROCEDURE PERFORMED RETURNED TO UNIT IN STABLE CONDITION WORKING WITH PT/OT CURRENTLY LOOKING FORWARDS TO POSSIBLE DC. REPORTED OFF CARE TO FELLOW RN FOR REMAINDER OF SHIFT.
--- NOTE | 2018-09-26 15:17 | NUR ---
Awaiting acceptance from [facility] rehab liason for admission later today. EDG completed. Pt agreeable to rehab stay at [facility] if they accept him. He has updated his . Pt has worked with therapy today after his EGD. Care team updated. Cm to arrange w/c van transport if accepted for admission today. Chart copy in progress. Will follow.
[2018-09-26] MEDS ORDERED: LISINOPRIL2.5 MG PO (15:50)
[2018-09-26] MEDS ORDERED: MEROPENEM1 GM IV (15:50)
[2018-09-26 16:30] VITALS: BP 155/70
--- NOTE | 2018-09-26 20:15 | NUR ---
ASSUMED CARE OF PT AT 1400. PT A&OX4, TRANSFERS WITH STANDBY, AMBULATES WITH WALKER. PT DISCHARGED TO [facility]. EMS ARRIVED AT APPROX 1745. REPORT CALLED TO L[facility]ITA. PT STATES HE HAD ALL BELONGINGS. PICC LINE LEFT IN PLACE. TELE BOX REMOVED.
[2018-09-29 10:08] LABS: ANA INTERPRETATION Negative (Negative)
--- NOTE | 2018-09-30 14:44 | PATH ---
[facility] [address] [place] [address] PATHOLOGY RPT PROCEDURE Name: BERNAKIERRA E Room #: 214-P [facility] IN M.R.#: [id number] ������������������ Admission: 09/19/18 ������������������ Date of : 44 Discharge: 09/26/18 Report #: [id number] Path Case #: [id number] [facility] Accession Number: [id number] . 01 Material submitted: . GASTRIC POLYPS . 01 Clinical history: . Pre-OP DX: Iron deficiency anemia, melena Post-OP DX: Gastric polyps, esophageal varices, portal hypertensive gastropathy . 02 Diagnosis: Polyps, gastric polyps, endoscopic biopsy: - Compatible with hyperplastic polyps. - Negative for dysplasia or malignancy. (IUV:jyoti; 09/29/2018) QMS/09/29/2018 . 02 Electronically signed: . Audra Woody MD, Pathologist NPI- [id number] . 01 Gross description: . Received in formalin labeled "Kierra Coronel, gastric polyps," are multiple segments of cartagena soft tissue measuring 1.8 x 0.5 x 0.1 cm in aggregate dimensions. The specimen is filtered and entirely submitted in cassette A1. (TSD; 09/26/2018) TOB/TOB . 02 Pathologist provided ICD-10: K31.7 . 02 CPT . 205122 Specimen Comment: A courtesy copy of this report has been sent to Specimen Comment: [phone], , . Specimen Comment: Report sent to , DR JIMENES / DR SHEETS Specimen Comment: A duplicate report has been generated due to demographic updates. Performed at: 01 [facility] [address], [place] [id number] MD Pedro Cerrato MD Phone: [phone] Performed at: [address] [address] PATHOLOGY RPT PROCEDURE Name: KIERRA CORONEL Room #: 214-P [facility] IN M.R.#: [id number] ������������������ Admission: 09/19/18 ������������������ Date of : 44 Discharge: 09/26/18 Report #: [id number] Path Case #: [id number] [address] [place] [id number] MD Audra Woody MD Phone: [phone]
== END 2018-09-26 17:57 | DRG 871 ==
LOC: ER 12:33 → EROBS 15:11 → 2N 15:11 → ICU 15:11 → 2N 09-22 19:29
PROVIDERS: Emergency Medicine; Nurse Practitioner; Nurse Practitioner Adult Health; Radiology Diagnostic Radiology; Specialist; ADMIT Hospitalist
DX: A41.9 Sepsis, unspecified organism (principal); R65.21 Severe sepsis with septic shock; J18.1 Lobar pneumonia, unspecified organism; G93.41 Metabolic encephalopathy; J90 Pleural effusion, not elsewhere classified; I42.9 Cardiomyopathy, unspecified; R18.8 Other ascites; I47.1 Supraventricular tachycardia; I85.00 Esophageal varices without bleeding; E11.9 Type 2 diabetes mellitus without complications; K21.9 Gastro-esophageal reflux disease without esophagitis; I10 Essential (primary) hypertension; E78.5 Hyperlipidemia, unspecified; F41.9 Anxiety disorder, unspecified; I48.91 Unspecified atrial fibrillation; M19.90 Unspecified osteoarthritis, unspecified site; Z77.22 Contact with and (suspected) exposure to environmental tobacco smoke (acute) (chronic); I25.10 Atherosclerotic heart disease of native coronary artery without angina pectoris; F32.9 Major depressive disorder, single episode, unspecified; I95.9 Hypotension, unspecified; I72.3 Aneurysm of iliac artery; I71.4 Abdominal aortic aneurysm, without rupture; K74.60 Unspecified cirrhosis of liver; M06.9 Rheumatoid arthritis, unspecified; D50.9 Iron deficiency anemia, unspecified; K31.7 Polyp of stomach and duodenum; K44.9 Diaphragmatic hernia without obstruction or gangrene; K31.819 Angiodysplasia of stomach and duodenum without bleeding; Z95.1 Presence of aortocoronary bypass graft; Z90.49 Acquired absence of other specified parts of digestive tract; Z86.010 Personal history of colon polyps; Z95.5 Presence of coronary angioplasty implant and graft; I25.2 Old myocardial infarction; Z88.1 Allergy status to other antibiotic agents; Z88.2 Allergy status to sulfonamides; Z88.8 Allergy status to other drugs, medicaments and biological substances; Z79.4 Long term (current) use of insulin; Z82.49 Family history of ischemic heart disease and other diseases of the circulatory system; Z28.21 Immunization not carried out because of patient refusal; Z79.899 Other long term (current) drug therapy
CPT/HCPCS: 10078; 10081; 27000; 62110; 62900

== ENCOUNTER 2018-10-20 08:32 | Emergency (ER) | payer OTHER, BC ==
[~2018-10-20] VITALS: Ht 170.2 cm; Wt 73.9 kg
[~2018-10-20 08:32] MED LIST changes: +ALDACTONE100 MG PO; +BENAZEPRIL HCL5 MG PO; +CEFDINIR300 MG PO; +DILTIAZEM HCL30 MG PO; +LASIX 40 MG TAB40 M2 PO; +LEVAQUIN 500 M500 M2 PO; +LISINOPRIL2.5 MG PO; +LITE COAT ASPI325 MG PO; +MEROPENEM1 GM IV; +MUCINEX600 MG PO; +NOVOLOG100 UNIT/1 SUBQ; +PREDNISONE 10 M10 MG PO; +SORINE 80 MG TA80 M1 PO
[2018-10-20] MEDS ORDERED: GLUCOTROL5 MG PO (08:47)
[2018-10-20] MEDS ORDERED: JANUVIA100 MG PO (08:47)
[2018-10-20 09:04] LABS: HEMATOCRIT 38.6 % (42.0-52.0); HEMOGLOBIN 12.5 gm/dL (14.0-18.0); MCH 24.1 pg (26.0-34.0); MCHC 32.3 g/dL (28.0-37.0); MCV 74.5 fL (80.0-100.0); PLATELET COUNT 139 thou/uL (150-400); RBC 5.18 mil/uL (4.50-6.00); RDW 26.1 % (10.5-14.5); WBC 8.8 thou/uL (4.0-11.0)
[2018-10-20 09:08] LABS: CALCIUM 8.9 mg/dL (8.5-10.1); CREATININE 0.7 mg/dL (0.7-1.3); POTASSIUM 4.2 mmol/L (3.5-5.1)
[2018-10-20 09:13] LABS: ALBUMIN 2.3 g/dL (3.4-5.0); TOTAL BILIRUBIN 0.4 mg/dL (<0.1-1.0); TOTAL PROTEIN 6.5 g/dL (6.4-8.2)
[2018-10-20 09:42] LABS: ABSOLUTE NEUTROPHILS 7.1 thou/uL (1.4-8.2); ANISOCYTOSIS 2+; MICROCYTES 2+; PLATELET ESTIMATE NORMAL
[2018-10-20 10:07] LABS: MAGNESIUM 1.7 mg/dL (1.8-2.4); TROPONIN-I <0.06 ng/mL (<0.06)
[2018-10-20 10:08] LABS: INR 1.1; PROTIME 11.3 Seconds (9.3-11.4)
[2018-10-20 10:39] LABS: URINE BILIRUBIN NEGATIVE (Negative); URINE BLOOD NEGATIVE (Negative); URINE CLARITY CLEAR; URINE COLOR YELLOW; URINE GLUCOSE-RANDOM* NEGATIVE (Negative); URINE KETONES NEGATIVE (Negative); URINE LEUKOCYTES 2+ (Negative); URINE NITRITE NEGATIVE (Negative); URINE PROTEIN (DIPSTICK) NEGATIVE (Negative); URINE UROBILINOGEN 0.2 E.U./dl (0.2-1.0)
[2018-10-20 10:47] LABS: BACTERIA 1-9 Few /HPF (None Seen); CASTS None Seen /LPF (None Seen); CRYSTALS None Seen /LPF (None Seen); SQUAMOUS 0-3 Few /LPF (0-3); URINE RBC None Seen /HPF (0-2); URINE WBC 0-5 Rare /HPF (0-5)
[2018-10-20 12:23] VITALS: BP 99/50
--- NOTE | 2018-10-21 13:55 | EKG ---
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 : 1940 Requested By: Ge Barrera Order Number: [id number] MD: Syd Bazzi Measurements Intervals [place] Rate: 50 P: -34 CA: 181 QRS: -15 QRSD: 93 T: 32 QT: 441 QTc: 403 Interpretive Statements Sinus rhythm Atrial premature complexes Borderline left axis deviation Probable anteroseptal infarct, old Electronically Signed On 10-21-2018 13:55:26 CDT by Syd Bazzi [email or web address] ��������������������������������������������� <ELECTRONICALLY SIGNED> ���������������������������������������� By: Syd Bazzi MD ��������������������������������������������� 10/21/18 1355 0859 08 Syd Bazzi MD /CELESTINA
== END 2018-10-20 12:45 | disposition home or self-care (01) ==
LOC: ER 08:32
PROVIDERS: Emergency Medicine
DX: J44.9 Chronic obstructive pulmonary disease, unspecified (principal); R18.8 Other ascites; R00.1 Bradycardia, unspecified; K76.6 Portal hypertension; I10 Essential (primary) hypertension; M19.90 Unspecified osteoarthritis, unspecified site; E11.9 Type 2 diabetes mellitus without complications; K21.9 Gastro-esophageal reflux disease without esophagitis; I25.10 Atherosclerotic heart disease of native coronary artery without angina pectoris; E78.5 Hyperlipidemia, unspecified; I48.91 Unspecified atrial fibrillation; F41.9 Anxiety disorder, unspecified; F32.9 Major depressive disorder, single episode, unspecified; K74.60 Unspecified cirrhosis of liver; M06.9 Rheumatoid arthritis, unspecified; Z99.81 Dependence on supplemental oxygen; Z88.1 Allergy status to other antibiotic agents; Z88.2 Allergy status to sulfonamides; Z88.8 Allergy status to other drugs, medicaments and biological substances; Z77.22 Contact with and (suspected) exposure to environmental tobacco smoke (acute) (chronic)

== ENCOUNTER → 2018-11-12 | Outpatient (CLI) | payer OTHER, BC | END | disposition home or self-care (01) | LOC: GI 10-21 09:14 | DX: D50.9 Iron deficiency anemia, unspecified (principal); K21.9 Gastro-esophageal reflux disease without esophagitis; I25.10 Atherosclerotic heart disease of native coronary artery without angina pectoris; M60.9 Myositis, unspecified; Z88.2 Allergy status to sulfonamides; Z79.899 Other long term (current) drug therapy; Z88.8 Allergy status to other drugs, medicaments and biological substances; Z98.890 Other specified postprocedural states; Z79.82 Long term (current) use of aspirin ==

== ENCOUNTER → 2018-12-15 | Outpatient (CLI) | payer OTHER, BC ==
[~2018-12-15] VITALS: Ht 170.2 cm; Wt 59.9 kg
[~2018-12-15] MED LIST changes: +ANORO ELLIPTA1 EACH INH; +DEMADEX20 MG PO
--- NOTE | ~2018-12-15 | P ---
[facility] [place] [address] PROCEDURE REPORT Name: KIERRA CORONEL Room #: REG [facility]#: [id number] Admission: 12/15/18 ������������������ Attend Phys: Nick Romero MD Discharge: ������������������ Date of : 42 Report #: [id number] THIS REPORT FOR: //name// CC: Nick Tavera MD TYPE OF REPORT: Small bowel endoscopy report. BRIEF HISTORY: The patient is a 78-year-old male with history of GI bleeding noted on capsule endoscopy study. He was noted to have bright red blood in the proximal jejunum. Obviously, the source of bleeding was not identified. PREOPERATIVE DIAGNOSIS: Upper gastrointestinal bleeding. POSTOPERATIVE DIAGNOSES: 1. Diffuse gastritis. 2. Esophageal varices, grade 1-2. MEDICATIONS: Deep sedation with propofol per Anesthesia. SPECIMEN: None. ESTIMATED BLOOD LOSS: None. PROCEDURE: Small bowel endoscopy. FINDINGS: Prior to propofol sedation, procedure of small bowel endoscopy was discussed with the patient as well as potential risks and its complications. He indicates he understands and desires to proceed. DESCRIPTION OF PROCEDURE: With the patient in left lateral decubitus position, the Olympus video small bowel scope was advanced under direct vision. Examination of the esophagus throughout its entire length revealed intact soft mucosa without evidence of bleeding. Examination of distal esophagus revealed varices. These had been noted in the past and felt to be 1+ varices in the past. At this point, there appeared to be 1-2+. There was no evidence of bleeding or stigmata of bleeding. The scope was advanced in the stomach, which was examined on end view as well as retroflexed views. There was diffuse gastritis likely secondary to portal hypertension, which were previously described. There was no evidence of bleeding. 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 A hemostatic clip was seen in the stomach and a specific lesion was not seen. Pylorus was unremarkable. Duodenal bulb was unremarkable. The scope was then passed its entire length into the small bowel, which was well into the upper jejunum. Upon slow withdrawal of the scope, the mucosa inspected. No blood was seen. No bleeding lesions were seen. There was no evidence of neoplastic process, ulceration or [facility] [address] [place] [address] PROCEDURE REPORT Name: KIERRA CORONEL Room #: [facility]#: [id number] Admission: 12/15/18 ������������������ Attend Phys: Nick Romero MD Discharge: ������������������ Date of : 42 Report #: [id number] vascular ectasias. A source of blood loss could not be identified. CONDITION OF THE PATIENT UPON DISCHARGE: Following procedure, the patient drowsy and will be discharged home when fully ambulatory. INSTRUCTIONS TO THE PATIENT AND FAMILY AT THE TIME OF DISCHARGE: We will have him resume his Eliquis. Also, obtain a CBC for followup. Also, have him return to see me in followup in the office several weeks. Bleeding site was not identified. It is possible, we did not reach the level of the bleeding, although it appeared to be fairly proximal on the small bowel study. This possibly could have bled from his stomach or esophagus. However, it is noted that there was no blood in the stomach or esophagus and at this point, I favor small bowel source. ��������������������������������������������� ���������������������������������������� By: ��������������������������������������������� 1305 0349 Nick Romero MD /nt
[2018-12-15 13:39] LABS: HEMATOCRIT 38.2 % (42.0-52.0); HEMOGLOBIN 12.1 gm/dL (14.0-18.0); MCH 23.8 pg (26.0-34.0); MCHC 31.6 g/dL (28.0-37.0); MCV 75.3 fL (80.0-100.0); RBC 5.08 mil/uL (4.50-6.00); RDW 21.8 % (10.5-14.5); WBC 11.9 thou/uL (4.0-11.0)
== END | disposition home or self-care (01) ==
LOC: GI 08:29
PROVIDERS: Specialist
DX: K29.70 Gastritis, unspecified, without bleeding (principal); I85.00 Esophageal varices without bleeding; I11.0 Hypertensive heart disease with heart failure; I50.9 Heart failure, unspecified; E78.5 Hyperlipidemia, unspecified; I25.2 Old myocardial infarction; J43.9 Emphysema, unspecified; E11.9 Type 2 diabetes mellitus without complications; I25.10 Atherosclerotic heart disease of native coronary artery without angina pectoris; I48.91 Unspecified atrial fibrillation; K21.9 Gastro-esophageal reflux disease without esophagitis; F41.9 Anxiety disorder, unspecified; M06.9 Rheumatoid arthritis, unspecified; Z79.899 Other long term (current) drug therapy; Z87.891 Personal history of nicotine dependence; Z95.5 Presence of coronary angioplasty implant and graft; Z85.828 Personal history of other malignant neoplasm of skin; Z98.890 Other specified postprocedural states; Z79.01 Long term (current) use of anticoagulants; Z88.2 Allergy status to sulfonamides; Z88.8 Allergy status to other drugs, medicaments and biological substances; Z79.82 Long term (current) use of aspirin
CPT/HCPCS: 62110; 62900

== ENCOUNTER 2019-03-30 15:28 | Inpatient (IN) | payer OTHER, BC ==
[~2019-03-30] VITALS: Ht 167.6 cm; Wt 63.6 kg
--- NOTE | ~2019-03-30 | O ---
[facility] [place] [address] OPERATIVE REPORT Name: KIERRA CORONEL Room #: 428-P [facility] IN M.R.#: [id number] Admission: 03/30/19 Attend Phys: Danny Gonzalez MD Discharge: Date of : 44 Report #: [id number] THIS REPORT FOR: //name// CC: Danny Tavera Operative procedure performed at [facility]. PREOPERATIVE DIAGNOSIS: Dysphagia. POSTOPERATIVE DIAGNOSIS: Dysphagia. PROCEDURE: Direct laryngoscopy and rigid esophagoscopy. SURGEON: Gage Ware MD PIZZA MAKER: None. ANESTHESIA: General endotracheal anesthesia. No local anesthesia. ANESTHESIOLOGIST: Andria Mosqueda DO INDICATIONS FOR PROCEDURE: The patient is a 78-year-old male with fatty nonalcoholic liver disease with known esophageal varices and previous esophageal stricture in the past. He was admitted to the hospital on 03/30/2019 with continued to have reports of dysphagia that were worsened over the last couple of weeks. He was seen by the Gastroenterology team and they performed an upper endoscopy and again noted his esophageal varices and suspected that they would find some stenosis of the cricopharyngeus; however, they performed a balloon dilation with a 45-Eritrean balloon that was slightly over inflated and it was able to be passed very easily through the cricopharyngeus; therefore, an ENT consult was placed for our workup and evaluation of this patient's dysphagia. DESCRIPTION OF PROCEDURE: The patient was identified preoperatively in the holding area and his consent was confirmed. He was then transported to the operating room and placed on the operating table in supine position. The patient was then induced and with general endotracheal anesthesia with a 6-0 endotracheal tube off to his left side. The patient was then turned 90 degrees. A time-out was called to confirm the patient identity and procedure to be performed. Once this was confirmed, the patient was prepped and draped in the normal fashion. Using a Dedo laryngoscope, the oral cavity and oropharynx were examined. There was some white sloughing material noted on the oral mucosa and tongue mucosa. In addition, there was some located within the vallecula and piriform sinuses. This had a slightly characteristic appearance of oral thrush; however, it was able to be suctioned easily; therefore, I am not certain that this is the diagnosis. The Dedo laryngoscope was continued to be used to [address] [address] OPERATIVE REPORT Name: BERNAKIERRA E Room #: 428-P [facility] IN [facility].#: [id number] Admission: 03/30/19 Attend Phys: Danny Gonzalez MD Discharge: Date of : 42 Report #: [id number] inspect the supraglottis, glottis and immediate subglottis and there were no abnormalities noted. His vocal cords appeared to be normal. There were no masses or lesions noted. The piriform sinuses were clear. The esophageal inlet also appeared to be clear. At this time, the rigid esophagoscope was introduced into the patient's oral cavity and passed to the right piriform sinus and followed then posteriorly and medially into the esophageal inlet where it passed into the esophagus, past the cricopharyngeus with great ease. There was bile noted within the patient's esophagus that was suctioned clear. The rigid esophagoscope was passed back and forth multiple times to ensure patency. During these passes, it was noted, however, that there appeared to be multiple bony protuberances posterior to the esophageal inlet and esophagus proper. 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 In addition, the patient does seem to have some cervical lordosis, which may protrude significantly near this patient's esophageal inlet being the cause for his dysphagia. At this time, there were no obvious lesions or stenoses noted and the esophagoscope was removed. Please note that the preoperative plan to possibly perform Botox injections to the cricopharyngeus muscles was not performed as there was no spasm or stenosis noted. Estimated blood loss was 0. Fluids, please see the Anesthesia note. There were no needles used and all sponge counts were correct at the end of the case x 2. By: 1151 1214 Gage Ware MD /jayce
[2019-03-30 15:28] VITALS: BP 119/54
[~2019-03-30 15:28] MED LIST changes: +BUMETANIDE0.25 MG/1 INH; +FISH OIL 1,001000 M2 PO; +KRISTALOSE20 GM PO; +LIPITOR40 MG PO; +MAGOX 400400 MG PO; +ZINC10 MG PO; +ZINC50 MG PO
[2019-03-30 16:06] LABS: HEMATOCRIT 36.2 % (42.0-52.0); HEMOGLOBIN 11.4 gm/dL (14.0-18.0); MCH 21.9 pg (26.0-34.0); MCHC 31.4 g/dL (28.0-37.0); MCV 69.6 fL (80.0-100.0); PLATELET COUNT 301 thou/uL (150-400); RDW 23.9 % (10.5-14.5); WBC 15.8 thou/uL (4.0-11.0)
[2019-03-30 16:14] LABS: CALCIUM 8.6 mg/dL (8.5-10.1); CREATININE 0.7 mg/dL (0.7-1.3); POTASSIUM 4.2 mmol/L (3.5-5.1)
[2019-03-30 16:20] LABS: TOTAL BILIRUBIN 0.5 mg/dL (<0.1-1.0); TOTAL PROTEIN 6.7 g/dL (6.4-8.2)
[2019-03-30 16:32] LABS: ABSOLUTE NEUTROPHILS 12.5 thou/uL (1.4-8.2)
[2019-03-30 16:33] LABS: ANISOCYTOSIS 2+; MICROCYTES 1+; OVALOCYTES OCCASIONAL
[2019-03-30 16:34] LABS: SCHISTOCYTES OCCASIONAL
[2019-03-30 19:27] VITALS: BP 102/56
[2019-03-30 21:40] VITALS: BP 101/53
[2019-03-30] MEDS ORDERED: AMBIEN 5 MG TABL5 M1 PO (21:44)
[2019-03-30] MEDS ORDERED: ATIVAN0.5 MG PO (21:46)
[2019-03-30 23:10] VITALS: BP 91/39
--- NOTE | 2019-03-30 23:58 | NUR ---
Pt arrived from ED via cart at 1999 accompanied by staff. A/OX4,with forgetfulness noted but able to make needs known. Reports lives at home with spouse. Been using a walker lately d/t weakness otherwise has been independent prior to that. Swallow precautions implemented d/t dysphagia. Edema 2-3+ noted on BLE,extremities elevated on a pillow. Has a scabbed area on top of left ear. Uses O2 @ home 4L/NC. Denies pain on assessment. IVF infusing via LAC without problems. Voiding per urinal. Pt is NPO from midnight. Fall precautions implemented,calling approp.
[2019-03-31 02:23] LABS: URINE BILIRUBIN NEGATIVE (Negative); URINE BLOOD NEGATIVE (Negative); URINE CLARITY CLEAR; URINE COLOR YELLOW; URINE GLUCOSE-RANDOM* NEGATIVE (Negative); URINE KETONES NEGATIVE (Negative); URINE LEUKOCYTES NEGATIVE (Negative); URINE NITRITE NEGATIVE (Negative); URINE PROTEIN (DIPSTICK) NEGATIVE (Negative); URINE UROBILINOGEN 0.2 E.U./dl (0.2-1.0)
[2019-03-31 03:00] VITALS: BP 96/53
[2019-03-31 06:22] LABS: HEMATOCRIT 29.6 % (42.0-52.0); HEMOGLOBIN 9.6 gm/dL (14.0-18.0); MCH 22.5 pg (26.0-34.0); MCHC 32.4 g/dL (28.0-37.0); MCV 69.3 fL (80.0-100.0); RBC 4.27 mil/uL (4.50-6.00); RDW 23.5 % (10.5-14.5); WBC 7.2 thou/uL (4.0-11.0)
[2019-03-31 06:38] LABS: CREATININE 0.6 mg/dL (0.7-1.3); POTASSIUM 3.9 mmol/L (3.5-5.1)
[2019-03-31 07:46] VITALS: BP 97/54
--- NOTE | 2019-03-31 12:52 | EKG ---
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 : 1940 Requested By: Ge Barrera Order Number: [id number] MD: Main Benavides Measurements Intervals [place] Rate: 72 P: -19 NM: 270 QRS: -10 QRSD: 80 T: 32 QT: 380 QTc: 416 Interpretive Statements Sinus arrhythmia Prolonged NM interval Nonspecific ST segment abnormality Anteroseptal infarct, old Compared to ECG 10/20/2018 08:59:16 No significant change was found Electronically Signed On 03-31-2019 12:52:42 CDT by Main Benavides [email or web address] <ELECTRONICALLY SIGNED> By: Main Benavides MD, [facility] 03/31/19 1252 1617 1617 Main Benavides MD, [facility] /EPI
--- NOTE | 2019-03-31 13:20 | NUR ---
Assumed care of pt at 0700. Pt alert and oriented x4. Video swallow study ordered. 4L O2. Denies pain. Abd distended. Pills crushed in apple sauce. Uses urinal. Edema randi lower extremities. Calls appropriately. Fall precautions in place.
[2019-03-31 16:20] VITALS: BP 120/70
--- NOTE | 2019-03-31 17:12 | NUR ---
ASSESSMENT-PT NORMALLY LIVES AT HOME WITH HIS WHO IS 2YRS OLDER THAN HE. PT SAYS HE WALKS ON HIS OWN AND DOES HIS OWN ADLS. HE Has a cane, walker and wc if needed. He says he and share the cooking, cleaning and laundry. pt tells me he came to us from [facility]. Contacted them & s/w charge coordinator who will notify THE DON THAT I AM SENDING AN UPDATE & PT MAY POSSIBLY BE READY FOR DC TOMORROW. PT HAS A SHOWER CHAIR WITH A HANDHELD SHOWER WITH GR[employer] BARS. FOLLOWING TO ASSIST WITH DC PLANNING.
[2019-03-31 19:30] VITALS: BP 133/77
[2019-04-01 03:45] VITALS: BP 94/62
--- NOTE | 2019-04-01 05:47 | NUR ---
Assumed pt care at 1900. Pt A/OX4,occasional forgetfulness noted. Pt still has difficulties swallowing, meds crushed in liquid. Swallowing precautions reinforced. Continent of B&B. Pt has been NPO since midnight for possible EGD/Paracentisis today. Oral care frequently. Fall precautions in place, calls approp. Will continue to monitor pt.
[2019-04-01 06:48] LABS: INR 1.3; PROTIME 13.4 Seconds (9.3-11.4)
[2019-04-01 08:03] VITALS: BP 112/61
[2019-04-01 11:27] LABS: HEMATOCRIT 30.6 % (42.0-52.0); HEMOGLOBIN 9.9 gm/dL (14.0-18.0)
[2019-04-01 15:52] LABS: HEMATOCRIT 34.8 % (42.0-52.0); HEMOGLOBIN 10.9 gm/dL (14.0-18.0); MCH 22.1 pg (26.0-34.0); MCHC 31.4 g/dL (28.0-37.0); MCV 70.3 fL (80.0-100.0); RBC 4.94 mil/uL (4.50-6.00); RDW 24.1 % (10.5-14.5); WBC 8.7 thou/uL (4.0-11.0)
[2019-04-01 16:00] VITALS: BP 103/62
[2019-04-01 16:00] LABS: CALCIUM 8.1 mg/dL (8.5-10.1); CREATININE 0.6 mg/dL (0.7-1.3); POTASSIUM 4.8 mmol/L (3.5-5.1)
[2019-04-01 16:23] LABS: TSH 3.397 uIU/mL (0.358-3.740)
--- NOTE | 2019-04-01 16:24 | NUR ---
ASSUMED CARE OF PT AT 0700. PT HAD EGD DONE TODAY. 4L OXYGEN. IR CONSULTED. PARACENTESIS SCHEDULED FOR TOMORROW. VITAL SIGNS STABLE. IV FLUIDS INFUSING. PT CALLS APPROPRIATELY. FALL PRECAUTIONS IN PLACE.
[2019-04-01 16:50] LABS: FOLIC ACID 19.4 ng/mL (8.6-58.9)
[2019-04-01 17:00] VITALS: BP 102/64
[2019-04-01 18:14] VITALS: BP 97/59
[2019-04-01 19:45] VITALS: BP 99/71
--- NOTE | 2019-04-01 20:16 | NUR ---
Pt came back to unit from EGD approx 1530. Pt states he feels well and is waiting for dinner to be served. Vital signs stable. Fall precautions in place.
--- NOTE | 2019-04-01 20:44 | NUR ---
IR consulted. sales secretary calling in consult.
--- NOTE | 2019-04-02 04:02 | NUR ---
Assumed pt care at 1900. A/OX4,VSS. Pt had an EGD done 04/01,verbalizes feeling somewhat better able to swallow liquids with ease and no coughing. C/o throat pain,medicated with Fentanyl with relief reported. Continent of B&B. Voiding per urinal. Pt has been NPO since midnight for a possible Paracentisis today. IVF infusing without problems noted. Resting quietly with no distress noted O2 on @ 4L/NC. Fall precautions in place.
[2019-04-02 05:31] VITALS: BP 95/60
[2019-04-02 07:45] VITALS: BP 110/62
[2019-04-02 11:02] LABS: HEMATOCRIT 36.8 % (42.0-52.0); HEMOGLOBIN 11.3 gm/dL (14.0-18.0); MCH 21.9 pg (26.0-34.0); MCHC 30.8 g/dL (28.0-37.0); RBC 5.19 mil/uL (4.50-6.00); RDW 23.8 % (10.5-14.5)
[2019-04-02 11:16] LABS: ALBUMIN 1.8 g/dL (3.4-5.0); CALCIUM 8.3 mg/dL (8.5-10.1); CREATININE 0.6 mg/dL (0.7-1.3); MAGNESIUM 1.8 mg/dL (1.8-2.4); TOTAL BILIRUBIN 0.5 mg/dL (<0.1-1.0); TOTAL PROTEIN 6.3 g/dL (6.4-8.2)
[2019-04-02 11:29] LABS: POTASSIUM 4.4 mmol/L (3.5-5.1)
--- NOTE | 2019-04-02 12:09 | NUR ---
PT A&OX4, AMBULATES WITH ASSIST X1 AND WALKER. IV INFUSING NS @ 75/HR. PT HAD PARACENTESIS THIS AM OVER 4 LITERS REMOVED. PT IS BREATHING EASIER NOW. PT IS HAVING DIFFICULTY SWALLOWING, REQUESTING PEG TUBE PLACEMENT. SP, CONSULTING WITH PATIENT. CALLS APPROP., BED/CHAIR ALARM ON AT ALL TIMES.
[2019-04-02 16:26] VITALS: BP 130/63
--- NOTE | 2019-04-02 17:00 | NUR ---
FAXED CLINICAL UPDATE TO [facility] [place] RECEIVED CONFIRMATION AND SPOKE WITH MARIO AT THE FACILITY SHE SAID THAT THEY WILL NOT BE ABLE TO ACCEPT PT IS HE HAS A FEEDING TUBE I ASSURED HER AT THIS TIME THERE IS NOT FEEDING TUBE. DCP TO FOLLOW.
[2019-04-02 19:21] VITALS: BP 141/74
--- NOTE | 2019-04-02 23:12 | P ---
[facility] [place] [address] PROCEDURE REPORT Name: KIERRA CORONEL Room #: 428-P [facility] IN M.R.#: [id number] Admission: 03/30/19 Attend Phys: Danny Gonzalez MD Discharge: Date of : 44 Report #: [id number] THIS REPORT FOR: //name// CC: Danny Tavera DATE OF SERVICE: 04/01/2019 EGD WITH ESOPHAGEAL BALLOON DILATION OF A TIGHT PROXIMAL ESOPHAGEAL STRICTURE INVOLVING THE UPPER ESOPHAGEAL SPHINCTER. This is a patient of Dr. Codey Tavera and Dr. Danny Gonzalez. INDICATION FOR PROCEDURE: Procedure dysphagia to solids, developing over the past 1 month. The patient is only drinking liquids at this time. Previous Radiological evaluation showed a tight stricture in the proximal esophagus. The patient has had 2 recent EGDs in which this tight stricture was not seen and that was not a complaint of the patient at that time, so it is in an acute stricture. DESCRIPTION OF PROCEDURE: Informed consent for this procedure was obtained prior to the administration of any medication. The risks of the procedure, which include bleeding, perforation, infection, complications of sedation and the possibility I could miss something have been explained to the patient and he has indicated his consent by signing. Propofol was slowly titrated before and during this procedure for patient comfort by the anesthesia service. The Olympus upper videoscope was introduced through the upper esophageal sphincter without difficulty, although it is somewhat tortuous in the upper esophageal sphincter area and advanced under direct visualization to the third portion of the duodenum without difficulty. Findings are noted on withdrawal of the scope. The visualized portions of the second and third portions of the duodenum and the duodenal bulb are normal. Pylorus is normal, antrum, body, cardia and fundus. The patient has a moderate portal hypertensive gastropathy. It is nonbleeding. There is a clip on the lesser curvature of the body of the stomach of uncertain etiology. Not known where it came from or why it was placed there. Retroflex view did not reveal any significant hiatal hernia at this time. The scope was withdrawn into the esophagus. The Z-line is appropriately located at the top of the gastric folds and it appears normal. The esophageal mucosa appears normal. The patient does have grade 1-2 nonbleeding esophageal varices extending from the Z line all the way up to 25 cm from the incisors in the proximal esophagus. There are no stigmata of recent bleed from these varices. I saw no evidence of gastric varices. The scope was then withdrawn into the more proximal esophagus, I [facility] [address] [place] [address] PROCEDURE REPORT Name: KIERRA CORONEL Barbara Room #: 428-P [facility] IN M.R.#: [id number] Admission: 03/30/19 Attend Phys: Danny Gonzalez MD Discharge: Date of : 44 Report #: [id number] cannot appreciate visually a tight esophageal stricture in the proximal esophagus, but I am assuming that the tightest the most narrow region is the upper esophageal sphincter as I see it and I used multiple balloons to safely dilate this including #8, 9, 10, 11, 12, 13.5 and 15 mm balloons is upto a 45-Kenyan dilatation now. The patient tolerated the procedure well. Between each balloon change, I went down and removed as much air as I could from his stomach and I advanced the scope down into the duodenum again and it had not changed at all. The stomach likewise had not changed in appearance at all. The esophagus itself did not change in appearance at all other than some minor trauma in the proximal esophagus that was oozing slightly, but stopped spontaneously during the scope. The nonbleeding esophageal varices were still present and has not been affected by these dilatations. The scope came through the proximal esophagus without difficulty, both inward and outward upon withdrawal and I still see no evidence of any stricture, but hopefully this dilatation with these several balloons of the proximal esophagus will alleviate his dysphagia. Thank you very much once again for allowing me to participate in his care. I am going to start him on a Carafate Slurry for 7 days to just sober the mucosal scratches from the balloon heal up. We will advance his diet slowly to soft foods like pastas and go up from there. He can resume his usual medications. Thank you very much once again for allowing me to participate in his care, Dr. Gonzalez and Dr. Tavera. <ELECTRONICALLY SIGNED> By: Andra Valencia DO 04/02/19 2312 1420 0015 Andra Valencia DO /nt
--- NOTE | 2019-04-03 04:20 | NUR ---
PATIENT ALERT AND ORIENTED X4. C/O H/A, MED GIVEN. PO MEDS GIVEN CRUSHED IN LIQUIDS. DRESSING ON THE PARACENTESIS WAS DRENCHED WITH FLUID ROM SITE. DRESSING CHANGED. SLEPT MOST OF THE NIGHT.
[2019-04-03 05:04] VITALS: BP 131/51
[2019-04-03 07:59] VITALS: BP 120/58
--- NOTE | 2019-04-03 14:37 | NUR ---
TELEPHONE UPDATE PROVIDED TO ROSHAN AT [facility], PT TO HAVE PROCEDURE ON SATURDAY. FOLLOWING TO ASSIST WITH DC PLANNING.
[2019-04-03 16:20] VITALS: BP 117/58
[2019-04-03 19:41] VITALS: BP 132/88
--- NOTE | 2019-04-03 19:58 | NUR ---
CALLED PHARMACY THIS NURSE IS GOING TO USE CEFEPIME FOR 2199 WAS DUE 1730 PHARMACY TO SEND ANOTHER IV ABT BAG
[2019-04-04 04:16] VITALS: BP 112/68
[2019-04-04 05:30] LABS: ABSOLUTE NEUTROPHILS 6.8 thou/uL (1.4-8.2); BASOPHILS 0.9 % (0.0-2.0); HEMATOCRIT 32.1 % (42.0-52.0); HEMOGLOBIN 10.3 gm/dL (14.0-18.0); LYMPHOCYTES 3.6 % (24.0-44.0); MCH 22.5 pg (26.0-34.0); MCV 70.3 fL (80.0-100.0); MONOCYTES 7.6 % (1.0-8.0); PLATELET COUNT 184 thou/uL (150-400); POLYS 82.9 % (36.0-66.0); RBC 4.56 mil/uL (4.50-6.00); RDW 23.8 % (10.5-14.5); WBC 8.3 thou/uL (4.0-11.0)
[2019-04-04 06:10] LABS: ALBUMIN 1.4 g/dL (3.4-5.0); ANISOCYTOSIS 2+; CALCIUM 7.8 mg/dL (8.5-10.1); CREATININE 0.5 mg/dL (0.7-1.3); MAGNESIUM 1.6 mg/dL (1.8-2.4); MICROCYTES 2+; OVALOCYTES 1+; PLATELET ESTIMATE NORMAL; POIKILOCYTOSIS 1+; POTASSIUM 4.5 mmol/L (3.5-5.1); TOTAL BILIRUBIN 0.5 mg/dL (<0.1-1.0); TOTAL PROTEIN 5.4 g/dL (6.4-8.2)
--- NOTE | 2019-04-04 08:08 | NUR ---
PATIENT ALERT AND ORIENTED X4. C/O PAIN, MED GIVEN. ABD STILL DISTENDED AND FIRM. DRESSING ON PARACENTESIS INTACT. SLEPT OFF AND ON DURING NIGHT.
[2019-04-04 08:20] VITALS: BP 105/58
--- NOTE | 2019-04-04 11:10 | NUR ---
CONSULTED TO PLACE A PIV. 3W NURSE WITH 4 ATTEMPTS. PATIENT IS TO HAVE A PROCEDURE SATURDAY. DISCUSSED MIDLINE PLACEMENT - BENIFITS AND RISK FOR INFECTION AND DVT. PATIENT REQUESTING THE MIDLINE PLACEMENT. THE LEFT UPPER ARM BASILIC WAS WIDLEY PATENT. A #4F POWER MIDLINE WAS PLACED PER HOSPITAL POLICY. LINE WAS TRIMMED TO 15CM AND ADVANCED WITHOUT DIFFICULTY. LINE SECURED AND RELEASED FOR USE
--- NOTE | 2019-04-04 11:18 | NUR ---
DC ORDERS RECEIVED. IV REMOVED FROM L AC. DC INSTRUCTIONS, SCRIPTS AND FOLLOW UP APPOINTMENTS REVIEWED WITH PT. PT ESCORTED TO MAIN ENTRANCE.
--- NOTE | 2019-04-04 11:52 | NUR ---
PT A&OX4, AMBULATES WITH ASSIST X2 VERY WEAK. MIDLINE PLACED IN FAVIOLA PER VASC TEAM. PT TOLERATING LITTLE AMT OF FULL LIQUID AND SUPPLEMENT DRINK THIS AM. HAS DENIED PAIN TO THIS TIME TODAY. CALL FOR HELP APPROPRIATLY. WILL CONT POC.
[2019-04-04 16:00] VITALS: BP 117/69
[2019-04-04 19:27] VITALS: BP 153/89
[2019-04-05 01:39] VITALS: BP 145/69
[2019-04-05 07:19] VITALS: BP 122/81
[2019-04-05 15:55] VITALS: BP 126/71
[2019-04-05 19:29] VITALS: BP 118/71
--- NOTE | 2019-04-06 03:47 | NUR ---
PATIENT ALERT AND ORIENTED X4. 02NC WITH NO SOA NOTED. ABDOMEN REMAINS DISTENDED. IVF INFUSING W/O COMPLICATION AND BS MONITORED PER ORDER. PATIENT HAS BEEN NPO SINCE 04/05/19 AT 2359 FOR PROCEDURE TODAY. CONSENT SIGNED AND AT FRONT OF CHART. PATIENT TOLERATING MEDS CRUSHED AND MIXED WITH YOGURT. PATIENT IS TO HAVE ONE LITER ONLY OF LR AT 50ML/HR TO BEGIN AT 0800 ON 04/06/19 PER ORDER. PATIENT COOPERATIVE AND PLEASANT. RESTING QUIETLY. WILL MONITOR.
[2019-04-06 04:34] VITALS: BP 103/62
[2019-04-06 06:13] LABS: HEMATOCRIT 32.3 % (42.0-52.0); HEMOGLOBIN 10.3 gm/dL (14.0-18.0); MCHC 31.8 g/dL (28.0-37.0); MCV 69.3 fL (80.0-100.0); RBC 4.67 mil/uL (4.50-6.00); RDW 24.1 % (10.5-14.5); WBC 8.9 thou/uL (4.0-11.0)
[2019-04-06 06:31] LABS: CREATININE 0.5 mg/dL (0.7-1.3); MAGNESIUM 1.5 mg/dL (1.8-2.4); POTASSIUM 4.4 mmol/L (3.5-5.1)
[2019-04-06 09:23] VITALS: BP 97/64
[2019-04-06 09:25] VITALS: BP 100/62
--- NOTE | 2019-04-06 14:36 | NUR ---
ASSUMED CARE AT 0700, SHIFT ASSESSMENT DONE, NPO SINCE LAST NIGHT FOR PROCEDURE. LEFT UNIT AT 0830, CAME BACK AT 1200. PER DR RESUMED FULL LIQUID DIET, TOLERATING WELL. ON 5L NC. DR LOVING PUT IN ORDERS FOR PARACENTESIS, ULTRASOUND WAS CONTACTED AND PT LEFT FOR PARACENTESIS AT 1430. WILL CONTINUE TO ASSESS AND ASSIST WITH ADLs NEEDED.
[2019-04-06 16:22] VITALS: BP 98/52
--- NOTE | 2019-04-06 16:41 | NUR ---
[facility] DCP TO FOLLOW.
--- NOTE | 2019-04-06 17:29 | NUR ---
WENT FOR PARACENTESIS AT 1500, CAME BACK U PAT 1600. TOOK 6L OFF, [facility] NO COMPLATINS, TOLERATING FULL LIQUID DIET.
[2019-04-06 19:32] VITALS: BP 108/58
[2019-04-07 03:50] VITALS: BP 99/63
--- NOTE | 2019-04-07 04:57 | NUR ---
ASSUMED CARE OF PT @1900 PT ASSESSED AT START OF SHIFT A&OX4 TAKES MEDS CRUSHED IN APPLE SAUCE. LFT UPPER ARM MIDLINE INTACT AND FLUIDS INFUISNG. USES UINAL AT BEDSIDE AND STATED HE IS WEAK. ABD DISTENDED AND HAS PARACENTESIS DONE YESTERDAY DRESSING INTACT IN RT SIDE. ON 5L OF O2. CALLS AND LETS NEEDS KNOWN. FALL PREC INPLACE AND CALL LIGHT WITHIN REACH WILL CONT WITH POC TILL EOS.
[2019-04-07 08:20] VITALS: BP 103/56
[2019-04-07 16:25] VITALS: BP 103/62
--- NOTE | 2019-04-07 16:48 | NUR ---
PATIENT UP TO CHAIR FOR A COUPLE HOURS LATE MORNING UNTIL AFTER LUNCH. UP WITH MODERATE ASSIST. REFUSED TO WORK WITH OCCUPATIONAL THERAPY THIS SHIFT. DENIES PAIN THIS SHIFT. FALL PRECAUTIONS IN PLACE.
[2019-04-07 19:27] VITALS: BP 133/74
[2019-04-08 04:06] VITALS: BP 114/65
--- NOTE | 2019-04-08 04:24 | NUR ---
ASSUMED CARE OF PT @1900 PT ASSESSED AT START OF SHIFT WITH C/O OF PAIN IN SHOULDERS DUE TO RHEUMATOID ARTHRITIS PAIN MEDS GIVEN ON A PAIN SCALE OF 8 SEE EMAR. HAD A BM DURING THIS SHIFT. FLUIDS INFUSING. WILL CONT WITH POC TILL EOS.
[2019-04-08 06:31] LABS: HEMATOCRIT 29.9 % (42.0-52.0); HEMOGLOBIN 9.6 gm/dL (14.0-18.0); MCH 22.3 pg (26.0-34.0); MCHC 32.1 g/dL (28.0-37.0); MCV 69.4 fL (80.0-100.0); PLATELET COUNT 194 thou/uL (150-400); RBC 4.32 mil/uL (4.50-6.00); RDW 22.9 % (10.5-14.5); WBC 8.4 thou/uL (4.0-11.0)
[2019-04-08 07:52] VITALS: BP 109/57
[2019-04-08 08:50] LABS: ABSOLUTE NEUTROPHILS 7.4 thou/uL (1.4-8.2); ANISOCYTOSIS SLIGHT; HYPOCHROMASIA 1+; MICROCYTES 2+; PLATELET ESTIMATE NORMAL
[2019-04-08] MEDS ORDERED: SPIRONOLACTONE100 M1 PO (12:31)
[2019-04-08] MEDS ORDERED: CARAFATE 11 GM/10 M1 PO (12:31)
[2019-04-08] MEDS ORDERED: LASIX 40 MG TAB40 M2 PO (12:31)
--- NOTE | 2019-04-08 13:25 | NUR ---
PT DISCHARGING TODAY TO [facility] [place] FAXED DC ORDERS/SUMMARY TO FACILITY SPOKE WITH ALVARO IN ADM SHE RECEIVED DC ORDERS AND SHE WILL NOT BE ABLE TO SET UP TRANSPORTATION AND IS REQUESTING THAT SON OR DTR IN LAW TO CALL FACILITY PRIOR TO PT DISCHARGING SO I NOTIFIED DTR IN LAW MARY JANE AND SHE WILL CALL THE DON (ALVARO). DCP SET UP TRANSPORTATION WITH [facility] FOR [facility]AN AND 5L 02 FOR [id number]. NOTIFIED UNIT AND CHART COPY PER US. RN TO CALL REPORT TO .
--- NOTE | 2019-04-08 15:44 | NUR ---
Assumed care of pt at 0700. Pt a&ox4. Abdomen distended. C/o bilateral shoulder pain. Pain controlled with prn pain meds. IVF anntibiotics infused. Pills crushed in apple sauce. Discharged to facility.
== END 2019-04-08 15:26 | DRG 154 ==
LOC: ER 15:28 → 4E 17:28 → EROBS 17:28 → 4E 19:43
PROVIDERS: Emergency Medicine; Internal Medicine; Internal Medicine Gastroenterology; Nurse Practitioner; ADMIT Hospitalist
PROC: 0DJ08ZZ Inspection of Upper Intestinal Tract, Via Natural or Artificial Opening Endoscopic (ICD-10-PCS; principal; 2019-03-30)
PROC: 0D718ZZ Dilation of Upper Esophagus, Via Natural or Artificial Opening Endoscopic (ICD-10-PCS; 2019-04-01)
PROC: 0W9G3ZZ Drainage of Peritoneal Cavity, Percutaneous Approach (ICD-10-PCS; 2019-04-02)
PROC: 0W9G3ZZ Drainage of Peritoneal Cavity, Percutaneous Approach (ICD-10-PCS; 2019-04-06)
DX: J39.2 Other diseases of pharynx (principal); E43 Unspecified severe protein-calorie malnutrition; I85.00 Esophageal varices without bleeding; R18.8 Other ascites; K92.1 Melena; K76.6 Portal hypertension; E87.1 Hypo-osmolality and hyponatremia; K22.2 Esophageal obstruction; R13.19 Other dysphagia; E11.9 Type 2 diabetes mellitus without complications; I71.4 Abdominal aortic aneurysm, without rupture; D50.9 Iron deficiency anemia, unspecified; I10 Essential (primary) hypertension; D63.8 Anemia in other chronic diseases classified elsewhere; K31.89 Other diseases of stomach and duodenum; M40.40 Postural lordosis, site unspecified; I95.9 Hypotension, unspecified; E83.42 Hypomagnesemia; I25.10 Atherosclerotic heart disease of native coronary artery without angina pectoris; K74.60 Unspecified cirrhosis of liver; M06.9 Rheumatoid arthritis, unspecified; E78.5 Hyperlipidemia, unspecified; F41.9 Anxiety disorder, unspecified; J44.9 Chronic obstructive pulmonary disease, unspecified; K21.9 Gastro-esophageal reflux disease without esophagitis; I48.2 Chronic atrial fibrillation; I25.2 Old myocardial infarction; Z95.1 Presence of aortocoronary bypass graft; Z79.84 Long term (current) use of oral hypoglycemic drugs; Z88.2 Allergy status to sulfonamides; Z88.1 Allergy status to other antibiotic agents; Z88.8 Allergy status to other drugs, medicaments and biological substances; Z87.891 Personal history of nicotine dependence; Z90.49 Acquired absence of other specified parts of digestive tract; Z68.22 Body mass index [BMI] 22.0-22.9, adult
CPT/HCPCS: 10084; 27000; 50010; 50101; 62110; 62900; 70005

== ENCOUNTER 2019-04-09 11:36 | Emergency (ER) | payer OTHER, BC ==
[~2019-04-09] VITALS: Ht 170.2 cm; Wt 63.5 kg
[~2019-04-09 11:36] MED LIST changes: +CARAFATE 11 GM/10 M1 PO; +SPIRONOLACTONE100 M1 PO
[2019-04-09 13:26] LABS: HEMATOCRIT 37.1 % (42.0-52.0); MCH 21.9 pg (26.0-34.0); MCHC 31.3 g/dL (28.0-37.0); MCV 70.1 fL (80.0-100.0); PLATELET COUNT 197 thou/uL (150-400); RDW 23.3 % (10.5-14.5); WBC 11.5 thou/uL (4.0-11.0)
[2019-04-09 13:27] LABS: HEMOGLOBIN 11.6 gm/dL (14.0-18.0)
[2019-04-09 13:36] LABS: CALCIUM 8.9 mg/dL (8.5-10.1); CREATININE 0.6 mg/dL (0.7-1.3)
[2019-04-09 13:42] LABS: ALBUMIN 1.6 g/dL (3.4-5.0); TOTAL BILIRUBIN 0.3 mg/dL (<0.1-1.0); TOTAL PROTEIN 6.5 g/dL (6.4-8.2)
[2019-04-09 13:51] LABS: APTT 31.1 Seconds (24.5-32.8); INR 1.3; PROTIME 13.5 Seconds (9.3-11.4)
[2019-04-09 13:55] LABS: ABSOLUTE NEUTROPHILS 10.9 thou/uL (1.4-8.2)
[2019-04-09 13:56] LABS: ANISOCYTOSIS 2+; BURR CELLS OCCASIONAL; HYPOCHROMASIA 2+; MICROCYTES 2+
[2019-04-09 15:36] VITALS: BP 94/63
== END 2019-04-09 15:50 | disposition home or self-care (01) ==
LOC: ER 11:36
PROVIDERS: Emergency Medicine
DX: K70.31 Alcoholic cirrhosis of liver with ascites (principal); I10 Essential (primary) hypertension; I25.2 Old myocardial infarction; I25.10 Atherosclerotic heart disease of native coronary artery without angina pectoris; I48.91 Unspecified atrial fibrillation; J44.9 Chronic obstructive pulmonary disease, unspecified; E11.9 Type 2 diabetes mellitus without complications; K21.9 Gastro-esophageal reflux disease without esophagitis; F41.9 Anxiety disorder, unspecified; M06.9 Rheumatoid arthritis, unspecified; E78.5 Hyperlipidemia, unspecified; Z95.1 Presence of aortocoronary bypass graft; Z85.828 Personal history of other malignant neoplasm of skin; Z98.890 Other specified postprocedural states; Z88.1 Allergy status to other antibiotic agents; Z88.2 Allergy status to sulfonamides; Z88.8 Allergy status to other drugs, medicaments and biological substances; Z77.22 Contact with and (suspected) exposure to environmental tobacco smoke (acute) (chronic)

== ENCOUNTER 2019-04-14 00:32 | Inpatient (IN) | payer OTHER, BC ==
[~2019-04-14] VITALS: Ht 170.2 cm; Wt 57.8 kg
[2019-04-14 00:34] VITALS: BP 122/98
[2019-04-14 01:17] LABS: ABSOLUTE NEUTROPHILS 9.9 thou/uL (1.4-8.2); BASOPHILS 1.1 % (0.0-2.0); EOSINOPHILS 1.2 % (0.0-3.0); HEMATOCRIT 41.9 % (42.0-52.0); HEMOGLOBIN 13.2 gm/dL (14.0-18.0); LYMPHOCYTES 4.2 % (24.0-44.0); MCH 22.1 pg (26.0-34.0); MCHC 31.4 g/dL (28.0-37.0); MCV 70.5 fL (80.0-100.0); MONOCYTES 5.2 % (1.0-8.0); PLATELET COUNT 308 thou/uL (150-400); POLYS 88.3 % (36.0-66.0); RBC 5.95 mil/uL (4.50-6.00); RDW 22.8 % (10.5-14.5); WBC 11.2 thou/uL (4.0-11.0)
[2019-04-14 01:39] LABS: CALCIUM 9.1 mg/dL (8.5-10.1); CREATININE 0.6 mg/dL (0.7-1.3); POTASSIUM 3.9 mmol/L (3.5-5.1)
[2019-04-14 01:43] LABS: URINE BILIRUBIN NEGATIVE (Negative); URINE BLOOD 1+ (Negative); URINE CLARITY SL CLOUDY; URINE COLOR YELLOW; URINE GLUCOSE-RANDOM* NEGATIVE (Negative); URINE KETONES NEGATIVE (Negative); URINE NITRITE-REFLEX NEGATIVE (Negative); URINE PROTEIN (DIPSTICK) NEGATIVE (Negative); URINE SPECIFIC GRAVITY <= 1.005 (1.005-1.035); URINE UROBILINOGEN 0.2 E.U./dl (0.2-1.0)
[2019-04-14 01:45] LABS: ALBUMIN 2.2 g/dL (3.4-5.0); TOTAL BILIRUBIN 0.3 mg/dL (<0.1-1.0); TOTAL PROTEIN 7.7 g/dL (6.4-8.2)
[2019-04-14 01:54] LABS: SQUAMOUS 0-3 Few /LPF (0-3); TRANSITIONAL EPITHEL CELL 4-10 Moderate /LPF (None Seen); URINE LEUKOCYTES-REFLEX 3+ (Negative)
[2019-04-14 01:55] LABS: CALCIUM OXALATE 4-10 Moderate /LPF (None Seen); HYALINE CASTS 0-3 Few /LPF (None Seen); MUCUS 0-3 Light strn/LPF (None Seen); URINE RBC 3-10 Few /HPF (0-2)
[2019-04-14 02:14] LABS: APTT 27.8 Seconds (24.5-32.8); INR 1.1
[2019-04-14 02:18] VITALS: BP 122/98
[2019-04-14 03:00] VITALS: BP 109/61
--- NOTE | 2019-04-14 05:05 | NUR ---
PT ARRIVED FROM ER AROUND 0255HRS. PT IS AOX4 AND WAS ABLE TO ANSWER ALL ADMISSION RELATED QUESTIONS. PT WAS ORIENTED TO THE UNIT AND THE ROOM. PT SIGNED CONSENTS AND UNDERSTANDS TEACHINGS. PT PLACED ON NPO FOR PARACENTESIS. VITAL SIGN STABLE. PT REPORTS SOME PAIN. FALL PRRECAUTION IN PLACE. FAMILY IS AT BEDSIDE. ORDERS ACKNOWLEDGED AND STARTED. NO SIGN AND SYMPTOMS OF ACUTE DISTRESS. PT WAS ABLE TO SLEEP. WILL CONTINUE TO MONITOR.
[2019-04-14] MEDS ORDERED: ELIQUIS5 MG PO (07:17)
[2019-04-14 07:45] VITALS: BP 96/63
[2019-04-14 08:46] LABS: ANISOCYTOSIS 1+; MICROCYTES 2+; PLATELET ESTIMATE NORMAL; POLYCHROMASIA 1+
--- NOTE | 2019-04-14 13:59 | NUR ---
INITIAL ASSESSMENT: SW reviewed chart and spoke with nursing and attending physician. Pt was admitted from [facility] due to cirrhosis of liver with ascites. Pt to have a paracentesis today. SW met with pt and family member sleeping at bedside. Introduced role of SW. Pt is alert/orientated to time and place. SW discussed discharge plan-returning to [facility]. Pt agreeable. OPAL spoke with Dhaval in admissions at [facility], who states their SW met with pt and son-in-law, Parag, earlier today at bedside and all are agreeable with referring to another SNF closer to [facility] and/or to where Parag lives in [facility]. OPAL left voice message for Parag ([phone]) to provide update and discuss discharge plan. Awaiting call back at this time. OPAL is following to assist as needed with discharge planning.
--- NOTE | 2019-04-14 14:11 | EKG ---
[address] [address] ELECTROCARDIOGRAM REPORT Name: KIERRA CORONEL Room #: 450-P ADM IN M.R.#: [id number] Admission: 04/14/19 Attend Phys: Cade Nevarez MD Discharge: Date of : 44 Report #: [id number] THIS REPORT FOR: //name// 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
[2019-04-14 14:54] VITALS: BP 91/51
--- NOTE | 2019-04-14 15:13 | NUR ---
cherelle sent initial snf referral to [place] [facility] Bishop tomorrow.
--- NOTE | 2019-04-14 18:12 | NUR ---
PT ASSESSED AT START OF SHIFT. PT READMITTED SEVERAL TIMES RECENTLY FOR DRAINAGE OF ACITES FROM LIVER FAILURE. PT HAD PARACENTESIS ON RT SIDE THIS AFTERNOON W/O INCIDENT. STATES HE FEELS MORE COMFORTABLE NOW. PLAN FOR DIURETICS AT ALF TO SEE IF HELPS. AMBULATED W/ THERAPY AND DID WELL.
[2019-04-14 19:19] VITALS: BP 90/59
--- NOTE | 2019-04-15 01:41 | NUR ---
ASSUMED CARE OF PT AT 1900 HRS. PT IS AOX 4 AND LETS NEEDS BE KNOWN. FALL PRECCAUTION IN PLACE. PT HAD PARACENTESIS DONE PREVIOUS SHIFT AND HAD 4.5L REMOVED. PT REPORT SIGNIFICANT RELIEF FROM PAIN AND DISCOMFORT. PT REPORTED SOME PAIN AND WAS TREATED WITH PRN PAIN MEDS. PT WAS ABLE TO GET COMFORTABLE AND SLEEP PART OF THE SHIFT. VSS AND NO S/S OF ACUTE DISTRESS. WILL CONTINUE TO MONITOR.
[2019-04-15 06:20] LABS: MCHC 31.8 g/dL (28.0-37.0); MCV 69.1 fL (80.0-100.0); RBC 5.06 mil/uL (4.50-6.00); RDW 22.1 % (10.5-14.5); WBC 9.2 thou/uL (4.0-11.0)
[2019-04-15 06:29] LABS: HEMOGLOBIN 11.1 gm/dL (14.0-18.0)
[2019-04-15 06:30] LABS: ALBUMIN 1.5 g/dL (3.4-5.0); CREATININE 0.6 mg/dL (0.7-1.3); POTASSIUM 3.8 mmol/L (3.5-5.1); TOTAL BILIRUBIN 0.4 mg/dL (<0.1-1.0); TOTAL PROTEIN 5.7 g/dL (6.4-8.2)
[2019-04-15 07:49] VITALS: BP 94/60
--- NOTE | 2019-04-15 08:48 | NUR ---
OPAL received call from Donna in admissions at [facility] stating they did not receive fax yesterday. OPAL faxed referral. Donna states she will know about their bed availability after their morning meeting. OPAL is following to assist as needed with discharge planning.
--- NOTE | 2019-04-15 14:02 | NUR ---
ADMISSIONS OVER AT [facility] INDICATED THAT THEY AREN'T ABLE TO ACCEPT PT. CM CALLED AND LEFT VM WITH PT'S SON-IN-LAW WAGNER INDICATING THAT CM NEEDS SOME OTHER FACILITIES THAT THEY ARE [id number] IN REFERRALS BEING SENT TO. CM AWAITING RESPONSE. CARE TEAM INDICATED THAT PT WILL BE MEDICALLY STABLE TO DC TOMORROW. CM TO FOLLOW INDICATED WITH DC PLANNING.
[2019-04-15 14:32] VITALS: BP 104/65
--- NOTE | 2019-04-15 19:34 | NUR ---
ASSUMED CARE AT 0700. PT A&0X4. PT WAS ON 2.5L NC AT SHIFT CHANGE, RT CAME BY AND ADJUSTED O2 TO 4L HOME O2 AMOUNT. PT ATE 100% OF BREAKFAST, BUT HAD VERY POOR APPETITE FOR LUNCH AND DINNER. PT DRANK 1 OF HIS SUPPLEMENTAL SHAKES. PT C/O ARTHRITIS PAIN THIS AFTERNOON TO HIS SHOULDERS AND WAS GIVEN TYLENOL PO. PT STATES PAIN BACK TO 0 AFTER TYLENOL GIVEN. PT SAT UP IN CHAIR MOST OF SHIFT AND IS BACK IN BED NOW.
[2019-04-15 20:05] VITALS: BP 100/65
[2019-04-15] MEDS ORDERED: NORCO 7.5-3251 EACH PO (22:48)
--- NOTE | 2019-04-16 04:18 | NUR ---
ASSUMED CARE OF PT AT 1900HRS. PT IS AOX4 AND LETS NEEDS BE KNOWN. FALL PRECAUTION IN PLACE. 4L O2 VIA NC CONTINUED. PT REPORTED SOME PAIN AND WAS TREATED WITH PRN PAIN MEDS. PT WAS ABLE TO GET COMFORTABLE AND SLEEP PART OF THE SHIFT. VSS AND NO S/S OF ACUTE DISTRESS. PT IS PROGRESSING TOWARDS DC GOALS. WILL CONTINUE TO MONITOR.
[2019-04-16 05:12] VITALS: BP 100/53
[2019-04-16 06:12] LABS: ALBUMIN 1.5 g/dL (3.4-5.0); CALCIUM 8.1 mg/dL (8.5-10.1); CREATININE 0.6 mg/dL (0.7-1.3); MAGNESIUM 1.5 mg/dL (1.8-2.4); POTASSIUM 4.3 mmol/L (3.5-5.1); TOTAL BILIRUBIN 0.4 mg/dL (<0.1-1.0); TOTAL PROTEIN 5.3 g/dL (6.4-8.2)
[2019-04-16 07:31] VITALS: BP 110/64
[2019-04-16] MEDS ORDERED: ALBUTEROL2.5 MG/0.5 INH (10:13)
[2019-04-16] MEDS ORDERED: DOXYCYCLINE HYC50 MG PO (10:13)
[2019-04-16] MEDS ORDERED: SPIRONOLACTONE100 M1 PO (10:13)
[2019-04-16] MEDS ORDERED: ACETAMINOPHEN325 M1 PO (10:13)
[2019-04-16] MEDS ORDERED: LASIX 40 MG TAB40 M1 PO (10:13)
[2019-04-16 11:24] LABS: % SATURATION 9 % (20-39); IRON 19 ug/dL (65-175); TIBC 219 ug/dL (250-450)
--- NOTE | 2019-04-16 13:42 | NUR ---
DISCHARGE PLANNING. PATIENT IS READY FOR DISCHARGE TODAY. POST ACUTE RECOMMENDED AT DISCHARGE. PATIENT REFERRAL FAXED TO [facility] FOR [facility]IENTS [facility]UTE CARE NEEDS PER PATIENT REQUEST. CALL PLACED TO [facility], SPOKE WITH KENNY. KENNY TO REVIEW PATIENT REFERRAL, AND MAY NOT BE ABLE TO ACCEPT PATIENT UNTIL TOMORROW. KENNY TO NOTIFY CM. FOLLOWING.
[2019-04-16 14:31] VITALS: BP 108/61
--- NOTE | 2019-04-16 15:24 | NUR ---
PT A&OX4, VSS, DENIES PAIN. PATIENT ABD DISTENDED AND FIRM. ACTIVE BOWEL SOUNDS. PATIENT UP TO RECLINER FOR PART OF THE DAY. PATIENT TOLERATING DIET. PATIENT ON 4L OF OXYGEN, NO SIGNS OF DISTRESS, BREATHING REG AND EASY. PT DENIES SOA. FALL PRECAUTIONS IN PLACE. WEIGHT TAKEN TODAY ORDERED. WILL CONTINUE TO MONITOR.
--- NOTE | 2019-04-16 16:17 | NUR ---
CM FOLOWED UP WITH PT'S SON IN LAY, SPOUSE, AND PT AND THEY ASKED THAT REFERRAL BE SENT TO [facility] RE[facility] SENT. CM SPOKE WITH DAINA IN ADMISSION AT FACILITY THEY RECIEVED IT AND WILL HAVE SOMEONE OUT TOMORROW TO DO AN ONSIGHT VISIT. CM TO FOLLOW INDICATED WITH DC PLANNING.
[2019-04-16 19:33] VITALS: BP 105/69
--- NOTE | 2019-04-17 03:14 | NUR ---
ASSUMED CARE AROUND 1900. AXOX3. NO S/S ACUTE DISTRESS NOTED OR REPORTED AT THIS TIME. WILL CONT TO MONITOR FOR ANY CHANGES IN CONDITION.
[2019-04-17 05:02] VITALS: BP 90/56
[2019-04-17 07:46] VITALS: BP 106/59
[2019-04-17 10:44] LABS: ALBUMIN 1.7 g/dL (3.4-5.0); CALCIUM 8.7 mg/dL (8.5-10.1); CREATININE 0.6 mg/dL (0.7-1.3); TOTAL BILIRUBIN 0.3 mg/dL (<0.1-1.0); TOTAL PROTEIN 6.4 g/dL (6.4-8.2)
[2019-04-17] MEDS ORDERED: DIFLUCAN200 MG PO (11:06)
--- NOTE | 2019-04-17 12:05 | NUR ---
Received awake on bed. Due medications given as prescribed. A+O. With O2 at 2lpm via nasal cannula. On blood sugar monitoring- taken and recorded accordingly, with insulin coverage prescribed. Able to use urinal to pass urine. With SL at L FA. Assisted in ADLs, eating and drinking; with supplements prescribed. With ascitis- s/p paracentesis 04/15. On daily weights, pt weighed this morning by night staff. A/W insurance authorization for placement. Vital signs stable. No complaints made upon assessment- informed that PRN pain meds are available, will inform nurse once he needs pain meds. Tolerating meal tray- no nausea, no vomiting and abdominal pain noted.
== END 2019-04-17 14:55 | DRG 871 ==
LOC: ER 00:32 → 4W 01:29 → EROBS 01:29 → 4W 03:00
PROVIDERS: Emergency Medicine; Internal Medicine Gastroenterology; Nurse Practitioner Family; ADMIT Internal Medicine
PROC: 0W9G3ZZ Drainage of Peritoneal Cavity, Percutaneous Approach (ICD-10-PCS; principal; 2019-04-14)
DX: A41.9 Sepsis, unspecified organism (principal); E43 Unspecified severe protein-calorie malnutrition; N39.0 Urinary tract infection, site not specified; I85.00 Esophageal varices without bleeding; K70.31 Alcoholic cirrhosis of liver with ascites; E11.9 Type 2 diabetes mellitus without complications; J44.9 Chronic obstructive pulmonary disease, unspecified; F41.9 Anxiety disorder, unspecified; E78.5 Hyperlipidemia, unspecified; I25.10 Atherosclerotic heart disease of native coronary artery without angina pectoris; M06.9 Rheumatoid arthritis, unspecified; K21.9 Gastro-esophageal reflux disease without esophagitis; I50.9 Heart failure, unspecified; Z77.22 Contact with and (suspected) exposure to environmental tobacco smoke (acute) (chronic); I11.0 Hypertensive heart disease with heart failure; K76.0 Fatty (change of) liver, not elsewhere classified; I48.91 Unspecified atrial fibrillation; K22.2 Esophageal obstruction; R13.10 Dysphagia, unspecified; D63.8 Anemia in other chronic diseases classified elsewhere; I71.4 Abdominal aortic aneurysm, without rupture; Z86.010 Personal history of colon polyps; I25.2 Old myocardial infarction; Z95.1 Presence of aortocoronary bypass graft; Z88.1 Allergy status to other antibiotic agents; Z88.2 Allergy status to sulfonamides; Z88.8 Allergy status to other drugs, medicaments and biological substances; Z87.891 Personal history of nicotine dependence; Z68.20 Body mass index [BMI] 20.0-20.9, adult; Z90.49 Acquired absence of other specified parts of digestive tract
CPT/HCPCS: 10040

== ENCOUNTER 2019-06-07 17:25 | Inpatient (IN) | payer OTHER, BC ==
[~2019-06-07] VITALS: Ht 167.6 cm; Wt 54.4 kg
[~2019-06-07 17:25] MED LIST changes: +ACETAMINOPHEN325 M1 PO; +ALBUTEROL2.5 MG/0.5 INH; +DIFLUCAN200 MG PO; +DOXYCYCLINE HYC50 MG PO; +LASIX 40 MG TAB40 M1 PO; +NORCO 7.5-3251 EACH PO
[2019-06-07 17:26] VITALS: BP 104/57
[2019-06-07] MEDS ORDERED: AMARYL4 MG PO (18:26)
[2019-06-07 19:05] LABS: BASOPHILS 0.8 % (0.0-2.0); EOSINOPHILS 2.4 % (0.0-3.0); HEMATOCRIT 34.3 % (42.0-52.0); HEMOGLOBIN 11.1 gm/dL (14.0-18.0); LYMPHOCYTES 5.9 % (24.0-44.0); MCH 21.9 pg (26.0-34.0); MCHC 32.3 g/dL (28.0-37.0); MCV 67.7 fL (80.0-100.0); MONOCYTES 7.2 % (1.0-8.0); PLATELET COUNT 197 thou/uL (150-400); POLYS 83.7 % (36.0-66.0); RBC 5.06 mil/uL (4.50-6.00); RDW 20.7 % (10.5-14.5); WBC 7.1 thou/uL (4.0-11.0)
[2019-06-07 19:13] LABS: CALCIUM 9.1 mg/dL (8.5-10.1); CREATININE 0.7 mg/dL (0.7-1.3); POTASSIUM 3.5 mmol/L (3.5-5.1)
[2019-06-07 19:19] LABS: ALBUMIN 2.1 g/dL (3.4-5.0); DIRECT BILIRUBIN 0.2 mg/dL (<0.1-0.3); TOTAL BILIRUBIN 0.7 mg/dL (<0.1-1.0); TOTAL PROTEIN 7.5 g/dL (6.4-8.2)
[2019-06-07 19:32] LABS: ANISOCYTOSIS 2+
[2019-06-07 19:33] LABS: MICROCYTES 2+; TARGET CELLS OCCASIONAL
[2019-06-07 19:35] LABS: SCHISTOCYTES RARE
[2019-06-07 19:37] LABS: HYPOCHROMASIA 1+
[2019-06-07 20:15] LABS: URINE BILIRUBIN NEGATIVE (Negative); URINE BLOOD NEGATIVE (Negative); URINE CLARITY CLEAR; URINE COLOR YELLOW; URINE GLUCOSE-RANDOM* NEGATIVE (Negative); URINE KETONES NEGATIVE (Negative); URINE LEUKOCYTES-REFLEX 2+ (Negative); URINE NITRITE-REFLEX NEGATIVE (Negative); URINE PROTEIN (DIPSTICK) NEGATIVE (Negative)
[2019-06-07 20:25] LABS: CASTS None Seen /LPF (None Seen); SQUAMOUS 0-3 Few /LPF (0-3)
[2019-06-07 20:26] LABS: URINE RBC 0-2 Rare /HPF (0-2); URINE WBC-REFLEX 6-15 Few /HPF (0-5)
[2019-06-07 20:27] LABS: BACTERIA-REFLEX None Seen /HPF (None Seen); CRYSTALS None Seen /LPF (None Seen)
[2019-06-07 22:25] VITALS: BP 101/58
[2019-06-07 22:53] VITALS: BP 103/60
--- NOTE | 2019-06-08 00:39 | NUR ---
PATIENT ADMITTED TO ROOM 441 PER CART. IS ALERT X 4. SKIN WARM AND DRY. RESP EVEN AND UNLABORED. RESP EVEN AND UNLABORED AT THIS TIME. CAME INTO HOSPITAL DUE TO BACK AND NECK PAIN. HAS HX OF A-FIB AND HEART RATE IS REGULAR THIS EVENING. PATIENT VERY FRAIL AND HAS CIRRHOSIS OF LIVER. ABDOMEN SLIGHTLY DISTENTED. VS STABLE. BACK AND NECK PAIN STARTED ABOUT 1 WEEK AGO. IV IN LEFT AC HAS FLUIDS INFUSING WELL, EXCEPT POSITIONAL. HAS A SORE ON COCCYX AREA. ALSO HAS SOME SCRATCHES ON BILATERAL SHINS. SMALL TRACE OF EDEMA NOTED IN BILATERAL FEET. PAIN IN BACK IS BETTER SINCE MEDS IN ED. CONT PLAN OF CARE. LUNGS CTA-DISM. NON-PROD COUGH.
[2019-06-08 03:10] VITALS: BP 94/54
[2019-06-08 07:58] VITALS: BP 87/56
--- NOTE | 2019-06-08 10:59 | NUR ---
PT CARE ASSUMED AROUND 0700. A&Ox4. PT. EVALUATED BY WOUND CARE. DRESSING APPLIED ON [address] WITH CONTRAST DONE. PT IS ON CARB CONTROLL DIET PUREED WITH THIN LIQUIDS, PT RECEIVED FLU SHOT. EVALUATED BY CASE MANAGMENT FOR POSSIBLE SKILLED FACILITY. MEDS GIVEN CRUSHED WITH APPLES SAUCE. PT ON 3 LITERS O2 WITH 4L AT HOME. SMALL ABRAISON ON LEFT EARS. WOUND EVALUATED AND COVERED WITH FOAM PER WOUND ACACIA PRUITT WOULD SUVICE WELL. SCD'S ON. VITALS RUNNING LOW BUT THIS IS PT. BASE LINE. PT UP WITH WALKER AND ONE ASSIST. IV SITE FLUSHES. PATENT WITH GOOD BLOOD RETURN, CLEAN DRY AND INTACT.
--- NOTE | 2019-06-08 12:02 | NUR ---
WOUND CONSULT; BILATERAL BUTTOCKS STAGE 2 WOUNDS NOTED, NO S/S OF INFECTION, PALE WOUND BEDS. PATEINT CANNOT TURN HIMSELF CURRENTLY. RECOMMEDATION ZGUARD TO BILATERAL BUTTOCKS WOUNDS DAILY/PRN, AN Q2H TURNING DISCUSSED WITH ACACIA
--- NOTE | 2019-06-08 16:18 | NUR ---
ASSESSMENT-PT LIVES AT HOME WITH HIS 78 YEAR OLD WHO HAS TROUBLE GETTING AROUND. PT SAYS HE SPENT ABOUT 1 1/2 WEEKS AT SKILLED REHAB AT [facility]. HE HAS BEEN HOME WITH HIS SINCE AND HAD BEEN ABLE TO WALK ON HIS OWN UP UNTIL ABOUT 2 WEEKS AGO AND HE SEEMED TO LOSE HIS BALANCE AND STARTED USING THE ROLLER WALKER. PT SAYS HE HAS BEEN TAKING HIS OWN SHOWER. THEIR SON BRINGS BY TALHA FOR THEM AND TRANSPORTS THEM WHERE THEY NEED TO GO. PT WEARS O2 AT HOME, NOT SURE OF NAME OF [employer] THAT SUPPLIES IT. 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 PT SAYS HIS PAIN PILLS CAME UP MISSING SO HE WAS JUST TAKING TYLENOL AND HE WAS HAVING A LOT OF PAIN DOWN HIS NECK & SPINE AND HE CAN'T TAKE THAT PAIN AGAIN. PT HAS A GRANDDTR IN [facility] AND A GRANDDTR DOWN THE STREET.
[2019-06-08 16:41] VITALS: BP 90/48
[2019-06-08 19:39] VITALS: BP 100/63
[2019-06-09 03:39] VITALS: BP 91/51
--- NOTE | 2019-06-09 05:57 | NUR ---
PT AOX4. PT PRESENTS WITH BRIGHT AFFECT AMD COOPERATIVE BEHAVIOR. PT REPORTS PAIN 7/10 IN BACK, NECK AND SHOULDERS. PT CURRENTLY TAKING PRN FENTANYL Q4HR AND PRN NORCO Q4HR. PAIN MANAGEMENT INTERVENTIONS EFFECTIVE, PT SLEEPING THROUGHOUT THE NIGHT WITHOUT INTERRUPTION, REPORT OR OBSERVATION OF PAIN. PT REQUIRES ASSIST X1. PT REFUSED TO BE REPOSITIONED FROM RIGHT SIDE HE REPORTS HE IS COMFORTABLE. PT ENCOURAGED TO NOTIFY STAFF FOR ALL NEEDS. BED IN LOWEST POSITION, CALL LIGHT WITHIN REACH, BED ALARMS ON. WILL CONTINUE TO MONITOR.
[2019-06-09 07:55] VITALS: BP 98/61
--- NOTE | 2019-06-09 11:35 | NUR ---
PT. CARE ASSUMED AT 0700. A&Ox4. PT IS A NO CODE. PT HAD A LONG TALK WITH INTERNAL CONTROL SPECIALIST ABOUT DISCHARGE PLANNING OF EITHER HOME WITH HOSPICE OR TO A RETIREMENT FACILITY WITH HOSPICE. PT. IS ON A PLAN TO HAVE BETTER PAIN MANAGMENT. PT. IS ON A AIRLOSS MATTRESS. PT. RECEIVES DAILY DRESSING CHANGES ON HIS COCCZYX.
--- NOTE | 2019-06-09 15:57 | NUR ---
FAXED REFERRAL TO [facility] SPOKE WITH KENNY IN ADM SHE RECEIVED REFERRAL BUT HAS NO LTC BEDS AVAILABLE AFTER SKILLED STAY. FAXED REFERRAL TO [facility] SPOKE WITH FELIPE IN ADM SHE HAS NO MEDICAID LTC BED AVAILABLE RIGHT NOW DP TO FOLLOW,
[2019-06-09 16:11] VITALS: BP 110/60
--- NOTE | 2019-06-09 16:39 | NUR ---
PT IS INTERESTED IN [facility], ASKED DC COMB TENDER TO FAX A REFERRAL.
[2019-06-09 22:00] VITALS: BP 107/71
[2019-06-10 00:30] VITALS: BP 100/55
[2019-06-10 03:05] VITALS: BP 107/58
--- NOTE | 2019-06-10 04:06 | NUR ---
Pt is A/OX4.Febrile 100.6 medicated with Tylenol with relief noted down to 98.6, C/o pain to upper back medicated with Morphine with relief reported and declines need for pain meds at this time. Fall precautions in place,calls approp. Resting with no distress noted,oxygen in place at 4L/NC.
[2019-06-10 08:53] VITALS: BP 109/58
[2019-06-10 10:58] LABS: HEMATOCRIT 30.3 % (42.0-52.0); HEMOGLOBIN 9.7 gm/dL (14.0-18.0); MCH 22.2 pg (26.0-34.0); MCHC 32.1 g/dL (28.0-37.0); MCV 69.1 fL (80.0-100.0); RBC 4.38 mil/uL (4.50-6.00); RDW 20.8 % (10.5-14.5)
--- NOTE | 2019-06-10 11:01 | NUR ---
WOUND CARE FOLLOW UP; THE COCCYX WOUND IS MUCH IMPROVED. THE LEFT EAR WOUND IS IMPROVED WELL. NO S/S OF INFECTION TO WOUNDS. RECOMMEDNATIONS; USE DUODERM FOR THE WOUND TO THE LEFT EAR. DISCUSSED WITH AACCIA
[2019-06-10 11:08] LABS: CREATININE 0.7 mg/dL (0.7-1.3); POTASSIUM 3.7 mmol/L (3.5-5.1)
[2019-06-10 11:18] LABS: INR 1.3
[2019-06-10] MEDS ORDERED: LORAZEPAM 0.50.5 MG PO (11:39)
[2019-06-10] MEDS ORDERED: NORCO 7.5-3251 EACH PO (11:39)
[2019-06-10] MEDS ORDERED: MSL20MG/ML PO (11:39)
[2019-06-10] MEDS ORDERED: DURAGESIC1 EACH TRANSDERM (11:39)
--- NOTE | 2019-06-10 12:07 | NUR ---
FAXED REFERRAL TO [facility] SP0KE WITH EDEN IN ADM SHE RECEIVED AND WILL REVIEW. ANTICIPATE DC TOMORROW 06/11.
--- NOTE | 2019-06-10 16:22 | NUR ---
APPROVAL TO [facility]ANGE [facility] WITH [employer] ([email or web address]) MEDICAL OBTAINED FROM CASE MGT DIRECTOR AND [facility] ARRANGED FOR [phone] TO [facility]. [facility] [phone]. [facility] [phone] AND ASK FOR FAX NUMBER TO SEND THE ORDERS.
--- NOTE | 2019-06-10 17:22 | NUR ---
I have reviewed the documentation by VALERIE JONES from 06/10/19 to 06/10/19 and I concur with it. JACIEL ARGUELLES
[2019-06-10 18:16] VITALS: BP 109/58
--- NOTE | 2019-06-10 18:22 | NUR ---
PT CARE ASSUMED 0700. A&Ox4. OT. WORKED WITH PT. THIS MORNING. HE WAS WEAK AND HIS O2 SATED IN THE HIGH 80'S. PT RECEIVED TEMPORARLY 8L AND O2 SATED BACK UP TO THE 95'S. PT. IS ON COMFORT CARE PROTOCOLL IN PLACE. NO MORE ACHS, PT/OT, ONLY MEDS TO KEEP PT COMFORTABLE. PT. HAS A TENTATIVE DISCHARGE ON SATURDAY TO [facility] THIS IS WHEN HIS BED WILL BE OPEN. TURNS REQUESTED BY PT. FOR COMFORT. VITALS ARE DAILY NOW. CALL PHYCISIAN IF SYMPTOM CONTROLIS INADEQUATE. ORDER IS IN FOR A OSCILATING FAN. WOUNDS ON COCCYX HAVE INPROOVED OVER THE LAST TWO DAYS. DUODERM ON THE LEFT EAR FOR COMFORT OF NASAL CANULA. I SPOKE WITH PT ABOUT ALL HIS CHANGES AND HE IS CONTENT WITH FUTURE CHANGES.
[2019-06-10 19:13] VITALS: BP 124/61
[2019-06-11 04:20] VITALS: BP 98/69
--- NOTE | 2019-06-11 05:14 | NUR ---
ASSUMED PT CARE 06/10 @1900. MUCINEX ORDER CHANGED TO LIQUID Q4prn. GIVEN PAIN MEDS FOR PAIN IN UPPER BACK, PAIN DECREASED FROM 9-7. PT REQUESTED SOMETHING FOR SLEEP IN EARLY AM, LORAZAPAM GIVEN, PT FELL RIGHT ASLEEP. OFFERED REPOSITIONING, PT REFUSED. LITTLE URINE OUTPUT OVERNIGHT AROUND 50ML.
[2019-06-11 08:00] VITALS: BP 100/66
--- NOTE | 2019-06-11 15:41 | NUR ---
Assumed care of pt at 0700. Opt alert and oriented x4. Felling weak. C/o back and shoulder pain. Prn pain meds administered. Lidocaine patch applied. Pt takes po meds crushed in apple sauce. Abd distended. Looking though CM notes it is stated pt to be transported to hospice on . Facility called and state pt to be transported on jun 12. on 4L O2. Fall precautions in place. Will continue to monitor.
[2019-06-11 17:08] VITALS: BP 112/70
[2019-06-11 19:21] VITALS: BP 98/61
[2019-06-12 04:19] VITALS: BP 103/55
--- NOTE | 2019-06-12 05:02 | NUR ---
PT ALERT AND ORIENTED X4. PT REPORTS SEVERE PAIN IN NECK, SHOULDERS, AND BACK. PT TAKING PRN Q4HR MORPHINE, PRN Q4HR FENTANYL, AND PRN Q4HR HYDROCODONE. PT CONTINUES TO REPORT PAIN AFTER MEDICATION ADMINISTRATION. PT REFUSES TO REPOSITION AFTER X2. PT REQUESTS TO STAY ON LEFT SIDE WITH PILLOWS FOR SUPPORT. PT ANTICIPATING DISCHARGE SOON. PT REPORTS HAVING A DRY NOSE WITH SCANT BLOODY DISCHARGE. NOSE WIPED WITH COLD WET TOWEL, PT REPORTS RELIEF, NO FURTHER DISCHARGE NOTED. DOCTOR NOTIFIED, PRN SALINE NASAL SPRAY OBTAINED. ENCOURAGED PT TO NOTIFY STAFF FOR ALL CONCERNS. BED IN LOWEST POSITION, CALL LIGHT WITHIN REACH, BED ALARM ON. WILL CONTINUE TO MONITOR.
[2019-06-12 08:00] VITALS: BP 96/59
--- NOTE | 2019-06-12 13:14 | NUR ---
Patient DC and left with the transportation at 1pm, report was given to Nery in [facility].
--- NOTE | 2019-06-23 15:36 | HC ---
[facility] [place] [address] CONSULTATION Name: KIERRA CORONEL Room #: 441-P [facility]#: [id number] Admission: 06/07/19 Attend Phys: Misa Perez MD Discharge: 06/12/19 Date of : 44 Report #: [id number] THIS REPORT FOR: //name// CC: Misa Perez [facility] physician/PCP DATE OF SERVICE: 06/08/2019 REQUESTING PHYSICIAN: Dr. Perez. CHIEF COMPLAINT: Low back pain. HISTORY OF PRESENT ILLNESS: The patient is a 78-year-old male who presented initially today with complaint of lower back pain beginning about 1 o'clock, 2 nights prior and he had stated that he had run out of pain medication approximately 2 days prior as well. The patient has a longstanding history of WHITTAKER including additionally having been found to have cirrhosis. He has had multiple paracentesis, but they are not in significant frequency. He had last one was approximately 4 weeks ago. He has had significant weight loss over the past year more than just edema. This has been at least since March, he has lost 22 pounds. Additionally, when reviewed back in September, he has lost approximately 30 pounds since that time. The patient reports that he has had poor appetite, poor p.o. intake overall. The patient is interested in palliative care and requested a consultation at this time. He states that his pain is now well controlled with IV pain medicine. He states that overall he feels that he is ready for . He certainly is not wishing to harm himself, but at this point in time, he is ready per his report to go to [facility]. He states that he had his experience with hospice type care. His daughter over this last year was at the hospice house in the area and then had spent approximately 3 weeks there. The patient is not wishing to have CPR or mechanical ventilation. He denies any nausea. Denies any constipation and denies any other concerns with regards to comfort at this time. He also denies dyspnea and is at his baseline oxygen requirements. PAST MEDICAL HISTORY: Atrial fibrillation, hyperlipidemia, hypertension, coronary artery disease, type 2 diabetes, WHITTAKER, cirrhosis, recurrent ascites, history of thoracic compression fracture, COPD, dysphagia, history of esophageal varices, rheumatoid arthritis, pleural effusions with recurrence, ascending aortic aneurysm. ALLERGIES: LOSARTAN, METFORMIN, AMOXICILLIN, SULFA. CODE STATUS: DNR. MEDICATIONS: On arrival, albuterol, Lasix 40 mg daily, Carafate 1 mg a.c. and at bedtime, Aldactone, Ambien, Ativan, Eliquis, glimepiride, Lipitor, [place] [id number] CONSULTATION Name: KIERRA CORONEL Room #: 441-P [facility] IN M.R.#: [id number] Admission: 06/07/19 Attend Phys: Misa Perez MD Discharge: 06/12/19 Date of : 44 Report #: [id number] acid, Januvia. FAMILY HISTORY: Noncontributory. PAST SURGICAL HISTORY: Vertebroplasty coronary artery bypass graft 1993, multiple paracentesis. REVIEW OF SYSTEMS: GENERAL: Denies any recent fevers or chills. CARDIOVASCULAR: Denies chest pain, palpitations, edema is minimal at this time. RESPIRATORY: Denies shortness of breath currently, cough or wheezing. ABDOMEN: Does report distention, but no significant pain at this time. Denies constipation or diarrhea. PHYSICAL EXAMINATION: VITAL SIGNS: Include temperature 37.1, pulse 60, respirations 18, blood pressure 90/48, 91% on nasal cannula 3 liters. GENERAL: The patient is alert. He is oriented x 3. He is in no acute distress. HEENT: Extraocular muscles appear to be intact. Normocephalic and atraumatic. No current scleral icterus. No conjunctival injection. CARDIOVASCULAR: Regular rate and rhythm. RESPIRATORY: Anteriorly appeared to be clear to auscultation. ABDOMEN: Moderate distention, nontender to palpation nontense. EXTREMITIES: The patient has generalized cachexia, although he has edema in his lower extremities bilaterally. LABORATORY DATA: These include white blood cell 7.1, hemoglobin 11.1, platelets 197. Sodium 132. Creatinine 0.7, AST 44, ALT 26, alkaline phosphatase 213. Last INR was obtained in his April visit was 1.1. RADIOLOGY: He has an ascending aortic aneurysm, although not defined as to size. Currently, he has atelectasis as well as bilateral small pleural effusions and he has evidence of prior thoracic compression fractures. ASSESSMENT AND PLAN: 1. Protein-calorie malnutrition. The patient was taking supplements at home, but at this time, the patient is currently significantly down as far as weight. I believe he may qualify for hospice based on this definition. Certainly, he additionally has cirrhosis. This may be a qualifying factor as too, although again in with his overall factors, MELD-Na score was currently 14 points. This may not be the overlying factor that may cause the end of his life. 2. Dysphagia. Certainly if he is felt to have pneumonia at this time, that could be a contributing factor. Certainly, he has had pneumonia prior and may be as a result of dysphagia. This could be another factor pointing to last 6 months of life. Certainly he has had recurrent admissions and that is another [facility] [address] [place] [address] CONSULTATION Name: KIERRA CORONEL Barbara Room #: 441-P [facility] IN ..#: [id number] Admission: 06/07/19 Attend Phys: Misa Perez MD Discharge: 06/12/19 Date of : 44 Report #: [id number] unstable factor for the patient. I did discuss this patient at this time. Again, wishes to be DNR status. I spent approximately 25 minutes in discussion of advanced care planning today. He wishes to pursue hospice whether that is an inpatient hospice or long-term care with hospice states that he has applied for Medicaid, but they are concerned that his financial resources are too much for him to qualify for Medicaid. I did consult case management to discuss his options further and to see if we can find further placement for the patient. We may initially start with the hospice house evaluation. However, he may qualify for this if he is continued to need IV pain medicine as he has right now. There is a possibility, though long-term care with hospice would be a better option for him if he does not qualify. I did discuss his home situation and that does not appear to be a viable option as the spouse is unable to care for him. Thank you very much for this consultation. Please contact me for any further questions regarding this consultation. <ELECTRONICALLY SIGNED> By: Baljit Chung DO 06/23/19 1536 [id number] Baljit Chung DO /jayce
== END 2019-06-12 13:04 | DRG 193 ==
LOC: ER 17:25 → EROBS 21:58 → 4S 21:58
PROVIDERS: Emergency Medicine; ADMIT Hospitalist
DX: J18.9 Pneumonia, unspecified organism (principal); E43 Unspecified severe protein-calorie malnutrition; J44.0 Chronic obstructive pulmonary disease with (acute) lower respiratory infection; N39.0 Urinary tract infection, site not specified; S22.31XA Fracture of one rib, right side, initial encounter for closed fracture; I48.20 Chronic atrial fibrillation, unspecified; J96.11 Chronic respiratory failure with hypoxia; E87.2 Acidosis; Z68.1 Body mass index [BMI] 19.9 or less, adult; K74.60 Unspecified cirrhosis of liver; I10 Essential (primary) hypertension; D50.9 Iron deficiency anemia, unspecified; Z66 Do not resuscitate; R13.10 Dysphagia, unspecified; X58.XXXA Exposure to other specified factors, initial encounter; E11.9 Type 2 diabetes mellitus without complications; I25.10 Atherosclerotic heart disease of native coronary artery without angina pectoris; F41.9 Anxiety disorder, unspecified; E78.5 Hyperlipidemia, unspecified; M06.9 Rheumatoid arthritis, unspecified; Z95.1 Presence of aortocoronary bypass graft; Z87.891 Personal history of nicotine dependence; Z88.1 Allergy status to other antibiotic agents; I25.2 Old myocardial infarction; Z88.2 Allergy status to sulfonamides; Z88.8 Allergy status to other drugs, medicaments and biological substances; Z79.899 Other long term (current) drug therapy; Y93.89 Activity, other specified; Y92.89 Other specified places as the place of occurrence of the external cause; Y99.8 Other external cause status; Z90.49 Acquired absence of other specified parts of digestive tract; Z23 Encounter for immunization
CPT/HCPCS: 10195

== ENCOUNTER 2019-06-18 15:11 | Inpatient (IN) | payer OTHER, BC ==
[~2019-06-18] VITALS: Ht 170.2 cm; Wt 60.2 kg
[2019-06-18 15:11] VITALS: BP 107/65
[~2019-06-18 15:11] MED LIST changes: +AMARYL4 MG PO; +DURAGESIC1 EACH TRANSDERM; +LORAZEPAM 0.50.5 MG PO; +MSL20MG/ML PO
[2019-06-18] MEDS ORDERED: LORAZEPAM 0.50.5 MG PO (15:21)
[2019-06-18] MEDS ORDERED: MORPHINE 00.5 MG/1 M SUBLING (15:27)
[2019-06-18 15:47] LABS: ABSOLUTE NEUTROPHILS 6.5 thou/uL (1.4-8.2); BASOPHILS 0.5 % (0.0-2.0); EOSINOPHILS 2.9 % (0.0-3.0); HEMOGLOBIN 11.4 gm/dL (14.0-18.0); LYMPHOCYTES 6.1 % (24.0-44.0); MCH 21.6 pg (26.0-34.0); MCHC 31.6 g/dL (28.0-37.0); MCV 68.4 fL (80.0-100.0); MONOCYTES 7.4 % (1.0-8.0); PLATELET COUNT 231 thou/uL (150-400); POLYS 83.1 % (36.0-66.0); RBC 5.26 mil/uL (4.50-6.00); RDW 20.7 % (10.5-14.5); WBC 7.8 thou/uL (4.0-11.0)
[2019-06-18 16:00] LABS: ANION GAP 0 mmol/L (7-16); BUN 13 mg/dL (7-18); CALCIUM 8.7 mg/dL (8.5-10.1); CHLORIDE 99 mmol/L (98-107); CO2 33 mmol/L (21-32); CREATININE 0.7 mg/dL (0.7-1.3); GLUCOSE 125 mg/dL (74-106); POTASSIUM 4.1 mmol/L (3.5-5.1); SODIUM 132 mmol/L (136-145)
[2019-06-18 16:10] LABS: ALBUMIN 1.9 g/dL (3.4-5.0); LIPASE 78 U/L (73-393); SGOT 38 U/L (15-37); SGPT 22 U/L (30-65); TOTAL BILIRUBIN 0.3 mg/dL (<0.1-1.0); TOTAL PROTEIN 7.3 g/dL (6.4-8.2); TROPONIN-I <0.06 ng/mL (<0.06)
[2019-06-18 17:02] LABS: ANISOCYTOSIS 2+; BURR CELLS OCCASIONAL; HYPOCHROMASIA 1+; MICROCYTES 1+; OVALOCYTES OCCASIONAL; TARGET CELLS 1+
--- NOTE | 2019-06-18 17:54 | EKG ---
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 : 1940 Requested By: Carlyn Tamayo Order Number: [id number] MD: Main Benavides Measurements Intervals [place] Rate: 64 P: MO: QRS: 9 QRSD: 98 T: 62 QT: 478 QTc: 494 Interpretive Statements Atrial flutter Poor R wave progression Compared to ECG 04/14/2019 00:46:51 no significant change was found Electronically Signed On 06-18-2019 17:54:23 [employer] by Main Benavides [email or web address] <ELECTRONICALLY SIGNED> By: Main Benavides MD, [facility] 06/18/19 1754 01 01 Main Benavides MD, [facility] /EPI
[2019-06-18 19:14] LABS: INR 1.1
[2019-06-19 00:24] VITALS: BP 93/54
[2019-06-19 00:37] VITALS: BP 104/67
[2019-06-19 04:29] LABS: CALCIUM 8.2 mg/dL (8.5-10.1); CREATININE 0.6 mg/dL (0.7-1.3); MAGNESIUM 1.5 mg/dL (1.8-2.4)
[2019-06-19 04:35] LABS: ABSOLUTE NEUTROPHILS 5.4 thou/uL (1.4-8.2); BASOPHILS 0.9 % (0.0-2.0); EOSINOPHILS 2.3 % (0.0-3.0); HEMATOCRIT 32.3 % (42.0-52.0); HEMOGLOBIN 10.1 gm/dL (14.0-18.0); LYMPHOCYTES 6.4 % (24.0-44.0); MCH 21.4 pg (26.0-34.0); MCHC 31.3 g/dL (28.0-37.0); MCV 68.1 fL (80.0-100.0); MONOCYTES 7.4 % (1.0-8.0); PLATELET COUNT 257 thou/uL (150-400); RBC 4.74 mil/uL (4.50-6.00); RDW 20.7 % (10.5-14.5); WBC 6.5 thou/uL (4.0-11.0)
[2019-06-19 04:45] VITALS: BP 99/66
--- NOTE | 2019-06-19 05:31 | NUR ---
PT ARRIVED UNIT AT ABOUT 0030, PT A/OX4, VITAL SIGNS STABLE, ASSESSMENT CHARTED. HIP AND SHOULDER PAIN MANAGED WITH PAIN MEDICATION. ADMISSION COMPLETE. PT RESTED WELL FOR THE REST OF NIGHT. WILL CONTINUE TO MONITOR.
[2019-06-19 07:35] VITALS: BP 97/58
[2019-06-19] MEDS ORDERED: PANTOPRAZOLE SO40 M1 PO (11:47)
[2019-06-19] MEDS ORDERED: MIRALAX17 GM PO (11:47)
[2019-06-19] MEDS ORDERED: MAGNESIUM400 MG PO (11:47)
--- NOTE | 2019-06-19 13:01 | NUR ---
Pt is from snf at [facility] and came in overnight. Tapped this morning and ready to dc back to the SNF. Prosthetic Assistant spoke with [facility] in admissions and they can accept for readmission. The pt is utilizing his skilled benefits for rehab but they will have their social service assistant setup a hospice info visit with pt/spouse soon. Copy of the dc summary /instructions faxed to [facility] as well as to Dr. Camacho. [facility] ambulance arranged for this afternoon. Dc time pending. Pt is aware and agreeable. Nursing to confirm time with his and call report. Chart copy ready to be sent with the pt.
--- NOTE | 2019-06-19 13:42 | NUR ---
ASSUMMED PT CARE AT APPROXIMATELY 0700. PT A&O X4. ASSESSMENT CHARTED. FALL PRECAUTIONS IN PLACE. ASSESSMENT CHARTED. FALL PRECAUTIONS IN PLACE. PT DENIES HAVING CHEST PAIN. PT DENIES HAVING SOB. PT STATED HE HAD PAIN IN HIS R SHOULDER. PT RECEIVED ANALGESICIS. PT STATED ANALGESICS HELPED RELIEVE PAIN. PT DISCHARGING BACK TO FACILITY. PT RECEIVED DISCHARGE EDUCATION. PT STATED UNDERSTANDING AND DENIED HAVING FURTHER QUESTIONS. REPORT GIVEN TO ACACIA LAWRENCE AT [facility]. RN STATED UNDERSTANDING AND DENIED HAVING FURTHER QUESTIONS. IV DC. TELE DC. Q2 TURNS. PT COMFORTABLE IN BED. PT DENIES HAVING FURTHER CONCERNS. AWAITING MEDICAL TRANSPORT TO ARRIVE. MEDICAL TRANSPORT TAKING PT BACK TO FACILITY. FACE SHEET AND PT'S PAPERS SENT C PT. VITAL SIGNS STABLE. BLOOD SUGARS STABLE.
== END 2019-06-19 15:28 | DRG 432 ==
LOC: ER 15:11 → 2N 17:27 → EROBS 17:27 → 2N 06-19 00:21
PROVIDERS: Nurse Practitioner; Nurse Practitioner Family; ADMIT Internal Medicine
PROC: 0W9G3ZZ Drainage of Peritoneal Cavity, Percutaneous Approach (ICD-10-PCS; principal; 2019-06-19)
DX: K70.31 Alcoholic cirrhosis of liver with ascites (principal); E43 Unspecified severe protein-calorie malnutrition; K76.6 Portal hypertension; J96.11 Chronic respiratory failure with hypoxia; I48.20 Chronic atrial fibrillation, unspecified; E87.1 Hypo-osmolality and hyponatremia; K72.90 Hepatic failure, unspecified without coma; J44.9 Chronic obstructive pulmonary disease, unspecified; F41.9 Anxiety disorder, unspecified; M06.9 Rheumatoid arthritis, unspecified; R62.7 Adult failure to thrive; R13.10 Dysphagia, unspecified; Z66 Do not resuscitate; D63.8 Anemia in other chronic diseases classified elsewhere; I10 Essential (primary) hypertension; E78.5 Hyperlipidemia, unspecified; E11.9 Type 2 diabetes mellitus without complications; I25.10 Atherosclerotic heart disease of native coronary artery without angina pectoris; I25.2 Old myocardial infarction; Z95.1 Presence of aortocoronary bypass graft; Z87.01 Personal history of pneumonia (recurrent); Z88.1 Allergy status to other antibiotic agents; Z99.81 Dependence on supplemental oxygen; Z88.2 Allergy status to sulfonamides; Z88.8 Allergy status to other drugs, medicaments and biological substances; Z79.899 Other long term (current) drug therapy; Z87.891 Personal history of nicotine dependence; Z68.20 Body mass index [BMI] 20.0-20.9, adult